=== PATIENT | female | born 1965 | race Caucasian/White ===

== ENCOUNTER 2018-08-23 11:27 | Emergency (ER) | payer OTHER, SELFPAY ==
[2018-08-23 11:28] VITALS: BP 124/86; PULSE 69; RESP 15; TEMP 36.7; O2SAT 98; BMI 44.9
--- NOTE | 2018-08-23 12:03 | ED.VISSUMM ---
- ER Visit Summary Date of Service: 08/23/18 Chief Complaint: Right knee pain History of Present Illness: The patient is a 53 F who presents with right knee pain that began after a fall today. Patient states she fell while she was at work. Patient states her lower leg was hyperextended underneath of her. Patient has a prior history of knee surgery on that knee. Patient states she felt a pop. Patient states her pain is sharp and is worse with weightbearing. Patient denies any paresthesias or weakness. Patient denies any other injuries. Patient denies any head injury or loss. Physical Examination: Vital signs are stable. Patient is afebrile. Patient is in no acute distress. Musculoskeletal exam reveals tenderness over the right knee. There is some mild edema. There is no ecchymosis. There is no deformity noted. There is no effusion noted. Extensor mechanism is intact. There is no pain with manipulation of the patella. Pedal pulses are equal bilateral. Sensation was intact light touch in all dermatomes of the lower extremities. Test Results: X-rays of the right knee were obtained. There is no acute fracture or dislocation. The prosthesis is intact. Emergency Department Course and Treatment: Patient was instructed to ice and elevate the right knee. Patient was instructed to follow-up with [facility] or her primary care physician in 5 to 7 days. Patient was instructed to use Tylenol and Motrin as needed for pain. Patient was given crutches. Patient understood and was agreeable with the plan. All questions were answered. Disposition: Discharge home Impression: Right knee contusion This note was generated with [employer] dictation software. It may contain incorrect words, spelling, and punctuation that were not noted in review of the chart prior to signing ED Disposition - Plan for ED Patient: Disposition: Home or Assisted Living Diagnosis: Contusion of right knee, initial encounter Instructions: ED Contusion Lower Ext Referrals: Judson Tena [Primary Care Provider] - 5-7 Days
--- NOTE | 2018-08-23 12:15 | RAD_ITS ---
STUDY: X-RAY - RIGHT KNEE REASON FOR EXAM: Female, 53 years old. Knee pain TECHNIQUE: 4 view(s) of the knee. Weight-bearing COMPARISON: None. FINDINGS: Status post right knee arthroplasty. No evidence of acute hardware failure or loosening. No fracture or dislocation. Small joint effusion. The soft tissue structures are unremarkable. RAD/Knee 4 or More Views IMPRESSION: As above Electronically Signed: Harvinder Miles DO at 13:20 EDT Tel , Service support ,
[2018-08-23 14:57] VITALS: BP 125/78; PULSE 72; RESP 16; O2SAT 97
== END 2018-08-23 14:58 | disposition home or self-care (01) ==
PROVIDERS: Emergency Provider Emergency Medicine; Family Provider Family Medicine; PCP Family Medicine
DX: S80.01XA Contusion of right knee, initial encounter (principal); W19.XXXA Unspecified fall, initial encounter; Y93.9 Activity, unspecified; Y92.89 Other specified places as the place of occurrence of the external cause; Y99.0 Civilian activity done for income or pay; I10 Essential (primary) hypertension; Z79.899 Other long term (current) drug therapy
CPT/HCPCS: 73564; 99285

== ENCOUNTER 2020-06-25 14:58 | Outpatient (RCR) | payer OTHER, SELFPAY ==
[2018-09-18 09:48] VITALS: BMI 44.8
[2020-06-25] MEDS: COVID-19 VACC, MRNA(PFIZER)/PF 30 MCG/0.3 ML SYRINGE IM (15:37)
[2020-07-16] MEDS: COVID-19 VACC, MRNA(PFIZER)/PF 30 MCG/0.3 ML SYRINGE IM (15:10)
== END 2020-06-25 23:59 ==
LOC: IMMUN 14:58
PROVIDERS: Visit Provider Family Medicine
DX: Z23 Encounter for immunization (principal)
CPT/HCPCS: 0001A; 0002A; 91300

== ENCOUNTER → 2021-01-13 | Outpatient (CLI) | payer OTHER, SELFPAY | END | disposition home or self-care (01) | LOC: LABSPEC 09:06 | PROVIDERS: Referring Provider Physician Assistant; Visit Provider Physician Assistant | DX: U07.1 COVID-19 (principal) | CPT/HCPCS: 87635; U0005; U0003 ==

== ENCOUNTER → 2021-03-21 15:11 | Outpatient (CLI) | payer OTHER, SELFPAY ==
[2021-03-21 16:16] LABS: Absolute Lymphocyte Count 2.74 X10^3/uL (0.83-4.51); Absolute Neutrophil Count 6.5 X10^3/uL (2.0-7.7); Basophil# 0.07 X10^3/uL; Basophil% 0.7 % (0-1); Eosinophil# 0.24 X10^3/uL; Eosinophils% 2.3 % (0-5); Hematocrit 42.2 % (37-47); Hemoglobin 13.7 g/dL (12.0-15.0); Lymphocyte # 2.74 X10^3/ul (0.83-4.51); Lymphocyte % 26.2 % (19-41); Mean Corp Hgb Conc 32.5 g/dL (32-36); Mean Corpuscular Hgb 30.2 pg (27.0-32.0); Mean Platelet Vol. 9.5 fl (6.2-12.0); Monocyte# 0.83 X10^3/uL; Monocyte% 7.9 % (0-10); NRBC Flagged by Analyzer 0 % (0-5); Neutrophil # 6.53 X10^3/uL (2.7-7.7); Neutrophil % 62.4 % (47-70); Platelet Count 335 K/mm3 (150-450); RBC Distribution Width SD 41.1 fl (35.1-43.9); Red Blood Count 4.54 M/mm3 (4.2-5.4); White Blood Count 10.5 K/mm3 (4.4-11.0)
[2021-03-21 16:23] LABS: CRP 9.24 mg/L (0.0-3.0)
[2021-03-21 16:55] LABS: Erythrocyte Sedimentation Rate 37 mm/hr (0-30)
== END ==
PROVIDERS: PCP Family Medicine; Visit Provider Orthopaedic Surgery
DX: Z96.652 Presence of left artificial knee joint (principal)
CPT/HCPCS: 36415; 85025; 85652; 86140

== ENCOUNTER → 2021-09-30 | Outpatient (CLI) | payer OTHER, SELFPAY ==
--- NOTE | 2021-09-30 07:34 | NM_ITS ---
Three-phase bone scan INDICATION: Left knee replacement 10 years ago, left knee pain TECHNIQUE: 25.4 mCi of technetium 99m labeled MDP injected intravenously with 3 phase imaging the bilateral knees. FINDINGS: Blood flow and blood pool imaging demonstrates asymmetric increased activity of the distal left thigh/knee particularly along the medial joint. On delayed imaging, there are photopenic defects of the bilateral knees compatible with knee replacements. There is asymmetric activity on delayed imaging of the left more than right knee, particularly involving the distal femur, medial more than lateral. NM/Bone Scan Three Phase IMPRESSION: Positive three-phase imaging of the medial left knee/distal left femur can be associated with hardware loosening or infection. Recommend correlating with the x-ray and nuclear medicine WBC labeled study, if appropriate. Electronically Signed: Miquel Damico MD ([place]) at 16:40 EDT ,
[2021-09-30 08:21] LABS: Erythrocyte Sedimentation Rate 24 mm/hr (0-30)
[2021-09-30 08:22] LABS: Absolute Neutrophil Count 4.3 X10^3/uL (2.0-7.7); Basophil# 0.05 X10^3/uL; Basophil% 0.7 % (0-1); Eosinophil# 0.43 X10^3/uL; Eosinophils% 5.8 % (0-5); Hematocrit 39.9 % (37-47); Lymphocyte % 25.5 % (19-41); Mean Corp Hgb Conc 32.6 g/dL (32-36); Mean Corpuscular Hgb 30.2 pg (27.0-32.0); Mean Corpuscular Volume 92.8 fL (81-99); Mean Platelet Vol. 9.4 fl (6.2-12.0); Monocyte# 0.77 X10^3/uL; Monocyte% 10.3 % (0-10); NRBC Flagged by Analyzer 0 % (0-5); Neutrophil # 4.27 X10^3/uL (2.7-7.7); Neutrophil % 57.3 % (47-70); Platelet Count 284 K/mm3 (150-450); RBC Distribution Width CV 12.1 % (11.6-14.6); White Blood Count 7.5 K/mm3 (4.4-11.0)
== END | disposition home or self-care (01) ==
PROVIDERS: PCP Family Medicine; Referring Provider Orthopaedic Surgery; Visit Provider Orthopaedic Surgery
DX: Z96.652 Presence of left artificial knee joint (principal); Z47.1 Aftercare following joint replacement surgery
CPT/HCPCS: 36415; 78315; 85025; 85652; 86140; A9503

== ENCOUNTER → 2021-11-10 | Outpatient (CLI) | payer OTHER, SELFPAY ==
[2021-11-10 10:15] LABS: Synovial Fld Mononuclear WBC # 0.655 10^3/ul; Synovial Fld Mononuclear WBC % 76.1 %; Synovial Fld Polynuclear WBC # 0.206 10^3/uL; Synovial Fld Polynuclear WBC % 23.9 %
[2021-11-10 10:17] LABS: RBC /Synovial Fluid 0.018 10^6/uL (0)
[2021-11-10 11:22] LABS: AUTO B FLUID DILUENT BKGD CT WBC <0.1 RBC <0.01 (W<.1,R<.01)
[2021-11-10 11:23] LABS: Appearance /Synovial Fluid Hazy (CLEAR); Color / Synovial Fluid Yellow (Pale Yellow); Source / Synovial Fluid LEFT KNEE
[2021-11-10 11:25] LABS: Lymph 41 %; Monocyte /Synovial Fluid 25 %; Neutrophil 34 % (0-25)
[2021-11-10 11:27] LABS: Body Fluid QC Type(s) BF2
[2021-11-11 13:13] LABS: Pathologist Comment Reviewed
== END | disposition home or self-care (01) ==
LOC: LABSPEC 09:34
PROVIDERS: PCP Family Medicine; Referring Provider Specialist; Visit Provider Specialist
DX: M25.562 Pain in left knee (principal); Z96.652 Presence of left artificial knee joint
CPT/HCPCS: 87015; 87070; 87075; 87102; 87116; 87205; 87206; 89050; 89051

== ENCOUNTER 2022-10-24 10:07 | Outpatient (RCR) | payer OTHER, SELFPAY | END 2022-11-06 23:59 | LOC: NS 10:07 | PROVIDERS: PCP Family Medicine; Referring Provider Specialist; Visit Provider Specialist | DX: Z71.3 Dietary counseling and surveillance (principal); E66.01 Morbid (severe) obesity due to excess calories; Z68.42 Body mass index [BMI] 45.0-49.9, adult | CPT/HCPCS: 97802 ==

== ENCOUNTER 2022-11-08 10:45 | Outpatient (RCR) | payer OTHER, SELFPAY | END 2022-12-07 23:59 | LOC: NS 10:45 | PROVIDERS: PCP Family Medicine; Referring Provider Specialist; Visit Provider Specialist | DX: Z71.3 Dietary counseling and surveillance (principal); E66.01 Morbid (severe) obesity due to excess calories; Z68.42 Body mass index [BMI] 45.0-49.9, adult | CPT/HCPCS: 97803 ==

== ENCOUNTER 2022-12-05 11:30 | Outpatient (RCR) | payer OTHER, SELFPAY ==
--- NOTE | 2022-10-19 17:12 | HP.PTEVAL ---
Patient's Visit Information Visit Information Visit Information: REEMA ORELLANA is a 57 year old F referred to Physical Therapy by Dr. Valentino Puente MD with a diagnosis of L knee mech loosening posthetic joint, knee pain, obesity. Date of Evaluation: 10/19/22 Physical Therapist: Stewart Guevara, DPT, OCS, CSCS Visit Plan Frequency: 2x /Week Duration: 4-6 Weeks Plan: 2x/week x 4-6. 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 Pt to add ROM flexion to HEP and abd/add at [employer] Subjective Subjective: Have knee surgery coming up. Will have TKA on L knee, revision from 12 yrs ago. prosthesis loosened over time and causes her pain and limping. She can feel it grinding on steps. Pain up to 8/10 and average 5/10. 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 Worse after work. Sleep is OK. Basic ADLs able to do them. Hobbies: Avoids hiking due to knee pain. Exericses: [employer] or [employer]. does a little bit of everything 3-4x/week, avoids some leg machines including leg ext...can do press and leg curls and RDL. 02/14 will be surgery. Pain L knee: Pain Intensity (Out of 10): 0 Pain Intensity Range: 0 and 8 Objective Objective: L knee antalgia mildly coming into PT. No AD needed. I gait. I trasnfers from chair and bed. steps recirpocally up and down but pain L knee in WB descension. requires railing up and down and mildly weak on L. AROM L knee 0-110 and R knee 0-113, 0 ext lag with SLR B. quad moderatly tight B, HS min tightness. Hip AROM WFL, ankles WFL except DF to 0 B with tightness in gastroc. strength hips 3+ abd and ext, 4- flexion, no pain B. knee ext 4- L and pain, 4+ R, HSC 4 B ankle strength 4+ B. reflexes 2/3 B patella and achilles Sensation LE WNL to gross light touchin LE Balance/Special Test Scores Lower Extremity Functional Score: 38 Goals Goal 1:: 0-115 AROM L knee to help on steps comfort. Goal Time Frame: 4-6 Weeks Goal 2:: Patient I in appropriate pool ex for stretch quad, ROM and strength lower half/calorie burning Goal Time Frame: 4-6 Weeks Goal 3:: Pt feel 50% better in overall pain, to 2/10 at worst. Rehabilitation Potential Physical Therapy Diagnosis: L knee tightness, ROM deficits and weakness. Rehabilitation Potential: Good Anticipated Interventions Patient/Client Instruction: Educate patient on: Condition and Plan of Care For the Purpose of:: To decrease pain, To increase ROM, To improve muscle performance and motor function, To increase tolerance to activity/condition/position, To improve ability of physical actions for home/community/work/leisure and To improve gait and locomotor functions Therapeutic Exercise to Include: Strength training, Endurance training, Flexibilty training, In an aquatic setting, Passive ROM and Active ROM For the Purpose of:: To decrease pain, To increase ROM, To improve nutrient delivery to tissue, To improve muscle performance and motor function and To increase tolerance to activity/condition/position Text: Thank you for the opportunity to evaluate your patient. For Medicare and Medicare HMO plans, please review the plan of care and approve it. It will need to be FAXED BACK to us at [phone] for Medicare purposes. For Medicare only, by signing this I certify the plan of care. Please let me know if there are questions or concerns regarding this plan of care. Physician Signature: Date:
--- NOTE | 2022-11-16 10:59 | HP.PTREVAL_ITS ---
Re-Evaluation Intro: Dr. Valentino Puente MD, It has been my pleasure to treat REEMA ORELLANA over the last 9 visits for L knee mech loosening posthetic joint, knee pain, obesity. Please see the progress note below for an update on the physical therapy plan of care! Subjective Subjective: Pool is going well. I am getting stronger. Pain is not changing, will have revision on 8. pain in L knee and r hip 2/10 daily. Sometimes it feels like it will not hold her up. Activities: normal. Sleep is OK for the most part. Objective Objective/Function: 0-115 AROM, steps look better today but still click descend ing with L. No pain today but still slightly weak L eccentric steps vs R and requires rail. Appropriate to continue 3 more weeeks pool to [facility] and work to I, will continue [employer] workout during that time. Plan Plan Plan: 2x/week for 3 more weeks then d/c to community pool/[employer]. Progress WB pool ex and calorie burning and ensure ROM stays good. goals still appropriate and good prognosis. Balance/Gait/Functional tests Balance/Special Test Scores Lower Extremity Functional Score: 48 Goals Goals Goal 1:: 0-115 AROM L knee to help on steps comfort. Goal Time Frame: 4-6 Weeks Goal Progress: Goal Met Goal 2:: Patient I in appropriate pool ex for stretch quad, ROM and strength l ower half/calorie burning Goal Time Frame: 4-6 Weeks Goal Progress: Progressing Goal 3:: Pt feel 50% better in overall pain, to 2/10 at worst. Goal Progress: Progressing Anticipated Interventions Anticipated Interventions Patient/Client Instruction: Educate patient on: Condition and Plan of Care For the Purpose of:: To decrease pain, To increase ROM, To improve muscle performance and motor function, To increase tolerance to activity/condition/position, To improve ability of physical actions for home/community/work/leisure and To improve gait and locomotor functions Therapeutic Exercise to Include: Strength training, Endurance training, Flexibilty training, In an aquatic setting, Passive ROM and Active ROM For the Purpose of:: To decrease pain, To increase ROM, To improve nutrient delivery to tissue, To improve muscle performance and motor function and To increase tolerance to activity/condition/position Re-Evaluation Ending Re-evaluation ending: Please do not hesitate to contact me at [phone] by phone or if you have questions or concerns regarding this new plan of care! Sincerely, Stewart Guevara, DPT, OCS, CSCS
--- NOTE | 2023-01-16 18:06 | HP.PT.NRP ---
Patient Information Patient Information: REEMA ORELLANA was seen in my office for initial evaluation on 10/19/22. The following Plan of Care was established for this patient: POC Established Initial Frequency: 2x /Week Initial Duration: 4-6 Weeks Anticipated Interventions Patient/Client Instruction: Educate patient on: Condition and Plan of Care For the Purpose of:: To decrease pain, To increase ROM, To improve muscle performance and motor function, To increase tolerance to activity/condition/position, To improve ability of physical actions for home/community/work/leisure and To improve gait and locomotor functions Therapeutic Exercise to Include: Strength training, Endurance training, Flexibilty training, In an aquatic setting, Passive ROM and Active ROM For the Purpose of:: To decrease pain, To increase ROM, To improve nutrient delivery to tissue, To improve muscle performance and motor function and To increase tolerance to activity/condition/position Last Seen Last Seen: This patient was last seen in our office 12/05/22. Pertinent comments regarding their Physical therapy will appear below: Pt seen 14 visits of pool plan of care and was 95% better overall and had become I in HEP, at this point, I will discharge her per the last POC to an I program. At this point I will be discontinuing this patient from physical therapy. I would be happy to see this patient again in the future if found appropriate by the physician. Thank you! Stewart Guevara, DPT, OCS, CSCS Balance/Gait/Functional tests Balance/Special Test Scores Lower Extremity Functional Score: 48
== END 2022-12-05 19:00 | disposition home or self-care (01) ==
LOC: PT 11:30
PROVIDERS: PCP Family Medicine; Referring Provider Specialist; Visit Provider Specialist
DX: T84.033D Mechanical loosening of internal left knee prosthetic joint, subsequent encounter (principal); M25.562 Pain in left knee
CPT/HCPCS: 97113; 97161; 97530

== ENCOUNTER 2023-02-14 10:56 | Inpatient (IN) | payer OTHER, SELFPAY ==
--- NOTE | 2023-01-22 11:00 | EKG12_ITS ---
Test Reason : PRE OP Blood Pressure : / mmHG Vent. Rate : 074 BPM Atrial Rate : 074 BPM P-R Int : 130 ms QRS Dur : 078 ms QT Int : 390 ms P-R-T Axes : 054 035 055 degrees QTc Int : 432 ms Normal sinus rhythm with sinus arrhythmia Normal ECG Confirmed by KENN CARR, PETER ([id number]), scientific publications editor ZACH SALDIVAR ([id number]) on 01/25/2023 11:36:55 AM Referred By: SID Confirmed By:PETER HAWK MD
[2023-01-22 11:30] LABS: Absolute Lymphocyte Count 1.75 X10^3/uL (0.83-4.51); Absolute Neutrophil Count 4.7 X10^3/uL (2.0-7.7); Basophil# 0.03 X10^3/uL; Basophil% 0.4 % (0-1); Eosinophil# 0.22 X10^3/uL; Eosinophils% 2.9 % (0-5); Hematocrit 42.1 % (37-47); Hemoglobin 13.7 g/dL (12.0-15.0); Lymphocyte # 1.75 X10^3/ul (0.83-4.51); Lymphocyte % 23.1 % (19-41); Mean Corp Hgb Conc 32.5 g/dL (32-36); Mean Corpuscular Hgb 31.1 pg (27.0-32.0); Mean Corpuscular Volume 95.5 fL (81-99); Mean Platelet Vol. 9.2 fl (6.2-12.0); Monocyte# 0.83 X10^3/uL; Monocyte% 10.9 % (0-10); NRBC Flagged by Analyzer 0 % (0-5); Neutrophil # 4.74 X10^3/uL (2.7-7.7); Neutrophil % 62.4 % (47-70); Platelet Count 289 K/mm3 (150-450); RBC Distribution Width CV 12.1 % (11.6-14.6); RBC Distribution Width SD 42.5 fl (35.1-43.9); Red Blood Count 4.41 M/mm3 (4.2-5.4); White Blood Count 7.6 K/mm3 (4.4-11.0)
[2023-01-22 11:57] LABS: Albumin, Serum 3.4 g/dL (3.2-5.0); Anion Gap 6 (5-15); BUN 20 mg/dL (7-18); BUN/Creat Ratio 36.8 RATIO (10-20); Calcium,Total 8.7 mg/dL (8.5-10.1); Chloride 109 mmol/L (98-107); Creatinine, Serum 0.54 mg/dL (0.55-1.02); EST Glomerular Filtration Rate 122 mL/min (>60); Est Glom Filt Rate - Afr Amer 148 mL/min (>60); Glucose 82 mg/dL (74-106); Potassium 4.2 mmol/L (3.5-5.1); Sodium Level 140 mmol/L (136-145)
--- NOTE | 2023-02-05 13:22 | HP.PCM_ITS ---
History and Physical History and Physical? Patient Name: Gissel Yeager : 1965 From:? FARIHA MARCUS PA-C? DATE OF PRE-OPERATIVE EXAM: 02/05/2023 DATE OF SURGERY:? 02/14/2023 SCHEDULED PROCEDURE:? Revision left total knee arthroplasty HISTORY OF PRESENT ILLNESS: Preoperative history and physical exam was performed on February 05, 2023.? This is a 57-year-old female who is had ongoing pain in her postoperative left total knee arthroplasty.? Patient underwent previous left total knee arthroplasty by Dr. Roman Sanford on May 06, 2011.? She also underwent a right total knee arthroplasty on May 06, 2012.? She denies any postoperative complications.? Patient has had increased pain.? Pain is increased with going up and down stairs, sitting and walking.? She has difficulty with activities of daily living including leisure activities such as hiking.? She has been through weight loss program in which she is lost weight since her last visit.? Her BMI has gone down from 46.9-45.5.? She continues to have pain in the knee primarily over the medial and lateral joint line.? She has had past x-rays and bone scan which are consistent with loosening.? She had infectious workup with aspiration which was negative.? Synovasure was negative.? She did have elevated CRP at 10.5 with normal ESR at 24.? Patient has tried rest, ice, heat, elevation with no relief.? She has tried previous physical therapy and home exercises without relief.? She has been using [id number] Tylenol with only temporary relief.? After failing conservative measures and discussing all treatment options with Dr. Valentino Puente, the patient does wish to proceed with a left revision total knee arthroplasty.? We are obtaining surgical clearance from the primary care physician Dr. Calero.? She has medical history pertinent for gastroesophageal reflux disease and hypertension in which she does not require medication.? She denies past history of DVT or pulmonary embolism.? Denies any recent chest pain, shortness breath, fevers chills.? However she is having some congestion which is improving.? Patient does have past history of gastric sleeve procedure in 2019.? REVIEW OF SYSTEMS: Review Of Systems: Constitutional: Denies anorexia, change in appetite, fever, difficulty sleeping, weight change. Cardiovasular: Denies chest pain, heart murmur, irregular heartbeat and peripheral vascular disease. Respiratory: Denies asthma, cough, pneumonia, sleep apnea, shortness of breath, tuberculosis and wheezing. Gastrointestinal: Denies constipation, diarrhea, heartburn, nausea, rectal itching, bloody stools and vomiting. Genitourinary: Denies incontinence. Musculoskeletal: Reports pain, but denies leg swelling, trouble walking and weakness. Skin: Reports tattoo, but denies Raynaud's and history of shingles. Neurological: Denies ambulatory dysfunction, dizziness, numbness/tingling and tremor. Psychiatric: Denies anxiety, depression, insomnia, mental illness and stress. Hematologic/Lymphatic: Denies anemia, bleeding/bruising tendency and past transfusion. Reviewed and updated. PAST MEDICAL HISTORY: Advance Care Plan: No Advance Directives Effective Date: 03/15/2021 Past Medical History: Medical Problems: High Blood Pressure, Gastroesophageal Reflux Disease Accidents: None Surgical Hx: Bunion - 1999 Section - 1983 LT TKR - (05/08/2011) [email or web address] RT TKR - (05/06/2012) [facility] @ [facility] Gastric Sleeve - (2019) Anesthesia Complications: None Assistive Devices: Glasses Reviewed and updated. SOCIAL HISTORY: Social History: Marital: .Occupation: Penitentiary.Work Status: Currently Working.Hand Dominance: Right-handed. Personal Habits:? Cigarette Use: Former - .5 pack/day for 3 years.Smokeless Tobacco: Never Used Smokeless Tobacco.E-Cigarette Use: Never used.Alcohol: Occasionally.Drug Use: Denies Use.Enjoy Exercising: Exercises 1-3 X/Week. Reviewed, no changes. VITALS: Ht: 63 Wt: 257lb Wt k.575 BMI: 45.5 BP: 118/80 Pulse: 81 Resp: 15 T: 97.4 T: 36.3C Pain Level: 6 O2SatR: 97 ALLERGIES: Amoxicillin - rash/hives? MEDICATIONS: Pantoprazole Sodium 40 mg 1 by mouth every day, Zyrtec Allergy 10 mg 1 by mouth every day, Biotin 1000 mcg one tab po once daily, Multivitamin? 1 by mouth every day, Vitamin D3 Ultra Strength 125 mcg (5000 Ut) one cap po once daily, Stool Softener 100 mg two caps po once daily prn, Vitamin C 1000 mg one tab po once daily PRE-OP EXAM:? General appearance:NORMAL? ? ? Other: Eyes: Conjunctivae and lids: NORMAL? Pupils: ERR Ears, Nose, Mouth, and Throat: NORMAL? Other: Inspection of lips, teeth and gums: NORMAL? ?Other: Neck: Examination of neck: no masses noted. Respiratory: Assessment of respiratory effort: NORMAL? ?Other: ?Auscultation of lungs: clear to auscultation no wheezes, rhonchi or rales. Cardiovascular:? Auscultation of heart: regular rate and rhythm, no murmurs, gallops or rubs. PHYSICAL EXAMINATION: Patient does walk with an antalgic gait.? Left knee incision is well-healed without erythema.? She has tenderness to palpation along the medial joint line of the left knee.? Range of motion: 0 extension 114 flexion.? Stable to anterior/posterior drawer exam.? Sensation intact to light touch. IMAGING STUDIES: Previous x-rays and bone scan are consistent with loosening with the tibial cement mantle.? There is also lucency behind the anterior flange on the femur on the lateral view. Previous ESR 24 and CRP elevated at 10.5 Negative infection workup IMPRESSION: 1.? Painful left total knee arthroplasty with loosening 2.? Gastroesophageal reflux disease 3.? History of Hypertension 4.? Morbid obesity BMI 45.5 PLAN: Dr. Valentino Puente did discuss and review with the patient all treatment options including surgical versus nonsurgical options.? Patient does wish to proceed with the above-stated procedure.? Potential risks, benefits, and complications of the procedure were discussed in detail including but not limited to , infection, nerve and blood vessel damage, persistent pain, numbness, tingling, paresthesias, blood clot, pulmonary embolism, and requirement for possible further surgery.? The patient expressed full understanding and has no further questions for the doctor.? Patient does agree to proceed with the above-stated procedure and has signed the surgery consent form. POST-OP MEDICATION PLAN: Pain Medications: Patient will resume postoperatively with are normal pain regimen.? However we will avoid nonsteroidal anti-inflammatory due to elevated kidney function.? We discussed postoperative treatment with doxycycline for 2 weeks postoperatively.? We'll also follow cultures postoperatively while in the hospital which may alter antibiotics. DVT Prophylaxis:? Aspirin 81 mg twice daily for 4 weeks postoperatively.? Denies past history of DVT or pulmonary embolism This dictation was created using voice recognition software. Phonetic and/or grammatical errors may exist. ___? I have re-examined the patient.? There are no clinical changes since date of exam. ___? See progress notes for changes. ___? Dictated on admission Date: ? ? ?Time: Signature:
[2023-02-14] VITALS (11 sets, daily range): BP systolic 107–143; BP diastolic 67–90; PULSE 63–79; RESP 11–18; TEMP 36.5–36.9; O2SAT 93–100; BMI 45.6
[2023-02-14] MEDS: Acetaminophen 500 MG Tablet 1000 MG PO ×2 (11:45→20:49)
[2023-02-14] MEDS: Gabapentin 600 MG Tablet PO (11:46)
[2023-02-14] MEDS: Celecoxib 200 MG Capsule 400 MG PO (11:46)
[2023-02-14] MEDS: Lactated Ringers 1,000 ML 15 ML IV (11:47)
[2023-02-14 11:49] LABS: Bedside Glucose 92 mg/dL (74-106)
[2023-02-14] MEDS: Magnesium 1 GM over 15 mins IV (11:55)
[2023-02-14] MEDS: Lactated Ringers 1,000 ML 999 ML IV ×2 (12:04→16:45)
[2023-02-14] MEDS: Cefazolin 2 GM in 0.9% Normal Saline (100mL Bag) 100 ML IV (13:36)
[2023-02-14] MEDS: TXA 1000mg in NS100 100ml (IVPB at Incision) 660 MG IV (13:46)
[2023-02-14] MEDS: dexAMETHasone 10 MG/ML Vial IV (13:58)
[2023-02-14] MEDS: TXA 1000mg in NS100 100ml (IVPB at Closure) 660 MG IV (15:36)
[2023-02-14] MEDS: JPS (Morphine 10mg/ml) OPERA.SITE (15:39)
--- NOTE | 2023-02-14 15:44 | PCM.OPRPT ---
Report of Operation Date of Procedure: 02/14/23 Pre-Operative Diagnosis: Left failed total knee replacement, aseptic loosening Post-Operative Diagnosis: Left failed total knee replacement, aseptic loosening Surgery/Procedure Performed:: Left revision total knee replacement entire femoral and tibial components Description of Surgical Findings:: Stable knee with good patella tracking. Femoral and tibial implants were grossly loose. Surgeon: Valentino Puente appraiser land: Avni Chamorro Type of Anesthesia: Spinal Anesthesiologist: John Farnsworth Special Medications: 2 g Ancef, 1 g TXA at incision, 1 g TXA closure, 10 mg Decadron, joint cocktail (5 mg Duramorph, 30 mL of 0.5% Ropivicaine, 1000 units of epinephrine, 30 mg of Toradol) Specimen's removed: 3 separate specimens were sent to microbiology Estimated Blood Loss (mL): 200 Fluids Replaced: 1000 mL crystalloid Description of Procedure: Implants used: Femur: Cheryl triathlon size 5 total stabilized distal femur with 15 x 50 mm cemented stem. 5 mm augments distally medially and laterally. 5 mm augments posteriorly medially and laterally. Tibia: [place] triathlon size 5 universal tibial baseplate with 15 x 50 mm cemented stem, size C tibial cone Poly: 16mm total stabilized [place] X3 polyethylene Patella: Previous patella was retained Brief history operative indications: 57-year-old F with total knee replacement 13 years ago. Patient demonstrated radiographic evidence of loosening and clinical correlation. After ruling out infection we agreed to proceed with revision total knee replacement which had risks which include but not limited to blood loss, DVTs, PEs, nervous damage, infection, the risk of anesthesia. Patient demonstrate understanding was able to sign informed consent. Medical clearance was obtained. Procedure: On the date of procedure patient's L lower extremity was marked in the preoperative area. The patient was then taken back to the operating room where the patient was placed on the table in the supine position. All bony prominences were identified a well-padded. Anesthesia assumed control of the C-spine and airway and remained controlled throughout the remainder of the procedure. A tourniquet was placed on the L upper thigh and the leg was prepped in a sterile fashion. The surgeon then scrubbed at this time. Upon reentering the room L lower extremity was draped in a standard orthopedic fashion. A timeout was then called and everyone agreed upon the side, the site, the procedure to be performed, patient's identity and antibiotics given. An Esmarch bandage was used to exsanguinate the extremity and the tourniquet was placed up to 250 mmHg with the knee in flexion. A midline skin incision was made using the previous incision and extending it proximally and distally to identify normal tissue planes. Medial and lateral flaps were developed appropriate releases. The standard medial parapatellar arthrotomy was made and the patella was subluxed laterally. At this time an aggressive synovectomy was performed re-creating the medial gutter first, then the suprapatellar pouch than the lateral gutter. Once this was completed the knee was flexed up an osteotome was used to remove the tibial polyethylene. The remainder of the synovium was debrided. The standard deep MCL release was done and the patella scar pad was resected and lateral releases were performed. Next our attention was directed to the femur. Where flexible osteotomes and TPS saw were used to break up the implant cement interface. This was done both medially and laterally. After this a bone tamp was used to remove the femur component from the end of the bone. This was done with minimal bone loss. At this time attention was now directed towards the proximal tibia. Possible osteotome and TPS saw were then used to break up the proximal tibia implant interface and stacked osteotomes were used to remove the tibial implant. This was done with minimal bone loss. Our attention was then turned to the tibia where the intramedullary canal was reamed to 18 and a size C tibial cone was reamed. We then made a cleanup cut on the tibia, A drop ag was then used to verify the cut. A size 5 tibial base plate was selected. the knee was flexed and the tibial component was pinned into place and the boss reamer was used to ream the proximal medullary canal. The trial implant was impacted in its prepared position. Our attention was then turned back to the femur or the femur intramedullary canal was reamed to 17 mm using the previous implants a size 5 TCG cutting guide with a 17 mm stem was put into place. The medial epicondyle was used to set the joint line. With this TCG cutting guide we used a 16 mm polyethylene trial in order to help balance the gaps. Once the gaps were appropriately balanced the guide was firmly pinned into place. Distal cuts were made with 5 mm augments medially and 5 mm augment laterally. Posterior cuts were made with 5 mm augments medially and 5 mm augment laterally. Using the guide the box cut was made using a reciprocating saw. The appropriate trials were then placed on the femur and tibia. A trial polyethylene was trialed to ensure proper balancing and stability of the knee. Patella tracking, was then verified and corrected appropriately as needed. Our attention was then directed to the patella. Patella remained intact and appropriate. Based on x-rays it was firmly fixed. Patellar tracking was again checked and deemed appropriate. Final components were verified and opened, 6 liters of normal saline were irrigated throughout the joint under low-pressure lavage. Then the cement was mixed in a vacuum. Vigour.io Simplex cement with tobramycin was used. The wound was copiously irrigated with normal saline. When the cement was ready cement plugs were placed in the tibial cone was placed the components were cemented into place starting with the tibia, femur. The trial poly component was placed and the knee was placed in full extension. All excess cement was removed in the process. Once the cement had cured the tracking, alignment and balance were verified and a size 16 mm TS polyethylene component was placed. Once the final components were placed 3-minute dilute Betadine lavage followed by a chlorhexidine lavage was used and the wound was copiously irrigated with normal saline solution and the remainder of the periarticular injection was given. The wound was closed in a layer garcia fashion using #1 vicryl interrupted sutures for the arthrotomy, 2-0 interrupted Vicryl for the subcuticular layer and noemi for final skin closure. A sterile compressive dressing was then placed. The patient was then awakened from anesthesia, [facility] and [facility] to the [facility] for recovery. Post op plan DVT ppx: ASA 81mg BID, thigh high compression stockings Follow up: in office in 2 weeks for wound check PT: to start POD #0 at hospital, outpatient PT should be arranged. Patient will remain on doxycycline 100 mg p.o. twice daily for the next 2 weeks as we follow cultures. My physician behavioral health assistant was a vital part of this case. He was important in appropriate retraction during the case, and protection of soft tissues during bony cuts. His intimate knowledge of the case and my steps aided in safe and expedient completion of the procedure as well as appropriate position of the leg during the case. He was also vital in assisting with closure under my direct supervision. Complications No intraoperative complications Admit VTE Documentation VTE Present on Admission: No VTE Mechan Device Prophylaxis: SCD's and Thigh High MARTHA Hose VTE Pharm Prophylaxis ordered?: Yes
--- NOTE | 2023-02-14 16:45 | RAD_ITS ---
INDICATION: post op -- AP and Lateral xray of operative knee in PACU EXAMINATION/TECHNIQUE: X-RAY - LEFT XR Knee 2 VIEWS COMPARISON: FINDINGS: Status post left total knee replacement. The hardware components are well aligned. Postoperative changes in the adjacent soft tissue. . RAD/Knee 1 or 2 Views IMPRESSION: Total left knee replacement with postsurgical changes. Electronically Signed: Lazaro Grajeda DO at 17:50 EST ,
--- NOTE | 2023-02-14 17:54 | PCM.PN.HOSP ---
Subjective Subjective 57-year-old female presents for an elective left total knee revision secondary to aseptic loosening. Doing well in PACU on room air currently. Objective Data Objective Data Vital Signs: Vital Signs Temp Pulse Resp BP Pulse Ox O2 Del Method O2 Flow Rate 97.9 F 79 12 137/88 H 93 Room Air 4 02/14/23 17:30 02/14/23 17:30 02/14/23 17:30 02/14/23 17:30 02/14/23 17:30 02/14/23 17:30 02/14/23 17:15 Oxygen Flow Rate (L/min) 4 Oxygen Delivery Method Room Air Weight: 257 lb 15.053 oz Body Mass Index (BMI) 45.6 Intake & Output: Intake and Output for Last 24 Hours 02/13/23 02/14/23 02/15/23 03:59 03:59 03:59 Intake Total 1330 / 1330 Balance 1330 / 1330 Lab / Micro Data 01/22/23 11:09 01/22/23 11:09 Labs: Laboratory Results - last 24 hr 02/14/23 11:30: POC Glucose 92 Micro: Microbiology 01/22/23 11:09 Swab (Method) Nasal Screen MRSA/MSSA - Final Radiography Diagnostic Testing: Radiology Impression Knee X-Ray 02/14/23 16:45 IMPRESSION: Total left knee replacement with postsurgical changes. Electronically Signed: Lazaro Grajeda DO at 17:50 EST Reading Location ID and State: [facility] / [place] Tel [phone], Service support , Physical Exam Narrative General: Alert, Oriented x3, Cooperative, No apparent distress HEENT: Atraumatic, PERRLA, EOMI, Normocephalic Oral: Moist Mucosa Neck: Supple, No JVD Lungs: Diminished, Normal air movement, No rhonchi, No wheeze, No rales Cardiovascular: Regular rate, Regular Rhythm, Normal S1, Normal S2, No murmurs Abdomen: Soft, Non Tender, Non-Distended, No Hepato-splenomegaly Extremities: No edema, Capillary Refill Less than 3 Seconds Skin: Dressing CDI Musculoskeletal: No Tenderness to Palpation of Joints or Extremities Neurological: Cranial nerves II-XII grossly intact, Motor Exam 5/5 strength throughout, Sensory exam intact to light touch and pain Psych/Mental Status: Normal Affect, Appropriate Assessment & Plan Assessment/Plan (1) Status post revision of total replacement of left knee: PLAN: Plan 1. Status post left total knee revision on 02/14/2023 ? PT/OT ? Pain management per primary ? DVT prophylaxis per primary ? Currently on p.o. doxycycline ? Check CBC and BMP in the morning 2. GERD ? Stable ? Continue with her home PPI DVT: Per primary We will sign off if any issues arise please notify Charges/Coding Visit Charges Office Visits / Consults: [id number] OV L3 New
[2023-02-14] MEDS: Aspirin 81 MG TAB.CHEW PO (18:15)
[2023-02-14] MEDS: Senna/Docusate Sodium 1 Tablet 2 TABLET PO (20:49)
[2023-02-14] MEDS: Doxycycline 100 MG CAPSULE PO (20:49)
[2023-02-14] MEDS: Cefazolin 1 GM/50 ML BAG IV (20:49)
[2023-02-15 04:05] VITALS: BP 139/83; PULSE 68; RESP 18; TEMP 36.6; O2SAT 98
[2023-02-15] MEDS: oxyCODONE 5 MG Tablet PO ×3 (04:34→21:55)
[2023-02-15] MEDS: Acetaminophen 500 MG Tablet 1000 MG PO ×3 (04:34→21:55)
[2023-02-15] MEDS: Cefazolin 1 GM/50 ML BAG IV (04:35)
[2023-02-15 07:56] LABS: Hematocrit 36.5 % (37-47); Hemoglobin 11.5 g/dL (12.0-15.0); Mean Corp Hgb Conc 31.5 g/dL (32-36); Mean Corpuscular Hgb 30.2 pg (27.0-32.0); Mean Corpuscular Volume 95.8 fL (81-99); Mean Platelet Vol. 9.3 fl (6.2-12.0); Platelet Count 291 K/mm3 (150-450); RBC Distribution Width CV 12.1 % (11.6-14.6); RBC Distribution Width SD 42.1 fl (35.1-43.9); Red Blood Count 3.81 M/mm3 (4.2-5.4)
[2023-02-15 08:27] LABS: Anion Gap 3 (5-15); BUN 14 mg/dL (7-18); BUN/Creat Ratio 25.3 RATIO (10-20); Calcium,Total 8.3 mg/dL (8.5-10.1); Chloride 108 mmol/L (98-107); Creatinine, Serum 0.55 mg/dL (0.55-1.02); EST Glomerular Filtration Rate 120 mL/min (>60); Est Glom Filt Rate - Afr Amer 145 mL/min (>60); Estimated Creatinine Clearance 92.23 ml/min; Glucose 100 mg/dL (74-106); Sodium Level 140 mmol/L (136-145)
[2023-02-15 08:54] VITALS: BP 115/61; PULSE 85; RESP 16; TEMP 37.1; O2SAT 94
--- NOTE | 2023-02-15 09:26 | PCM.PN.ORT ---
Subjective Subjective The patient was sitting in bedside chair upon examination. Patient denies any chest pain, shortness of breath, dizziness, lightheadedness, nausea or vomiting, or calf pain. Pain is controlled on medications. No adverse overnight events. Patient has had drainage over the distal one third of the Mepilex dressing. She has tolerated therapy. We are awaiting on cultures/Gram stain as they are currently pending. Objective Data Objective Data Vital Signs: Vital Signs Temp Pulse Resp BP Pulse Ox O2 Del Method O2 Flow Rate 98.8 F 85 16 115/61 94 Room Air 4 02/15/23 08:54 02/15/23 08:54 02/15/23 08:54 02/15/23 08:54 02/15/23 08:54 02/15/23 08:55 02/14/23 17:15 Oxygen Flow Rate (L/min) 4 Oxygen Delivery Method Room Air Weight: 117 kg Body Mass Index (BMI) 45.6 Intake & Output: Intake and Output for Last 24 Hours 02/13/23 02/14/23 02/15/23 23:59 23:59 23:59 Intake Total 3482 / 3482 50 / 50 Output Total 800 / 800 700 / 700 Balance 2682 / 2682 -650 / -650 Lab / Micro Data 02/15/23 06:55 02/15/23 06:55 Labs: Laboratory Results - last 24 hr 02/14/23 11:30: POC Glucose 92 02/14/23 14:18: Acid Fast Stain Cancelled, Miscellaneous Cytology Cancelled 02/14/23 14:20: Acid Fast Stain Cancelled, Miscellaneous Cytology Cancelled 02/14/23 14:22: Acid Fast Stain Cancelled, Miscellaneous Cytology Cancelled 02/15/23 06:55: WBC 12.0 H, RBC 3.81 L, Hgb 11.5 L, Hct 36.5 L, MCV 95.8, MCH 30.2, MCHC 31.5 L, RDW Std Deviation 42.1, RDW Coeff of Farideh 12.1, Plt Count 291, MPV 9.3, Sodium 140, Potassium 4.0, Chloride 108 H, Carbon Dioxide 29.0, Anion Gap 3 L, BUN 14, Creatinine 0.55, Estim Creat Clear Calc 92.23, Est GFR (MDRD) Af Amer 145, Est GFR (MDRD) Non-Af 120, BUN/Creatinine Ratio 25.3 H, Glucose 100, Calcium 8.3 L Micro: Microbiology 01/22/23 11:09 Swab (Method) Nasal Screen MRSA/MSSA - Final Radiography Diagnostic Testing: Radiology Impression Knee X-Ray 02/14/23 16:45 IMPRESSION: Total left knee replacement with postsurgical changes. Electronically Signed: Lazaro Grajeda DO at 17:50 EST Reading Location ID and State: [facility] / [place] Tel [phone], Service support , Physical Exam Narrative Vital signs stable and afebrile. SCDs and MARTHA hose are in place. MARTHA hose are not fitting appropriately secondary to body habitus. They are rolling up and resting over the knee joint. Concern for skin irritation with this. Knee-high MARTHA hose are not appropriate as they will sit over the incision. She is instructed to continue to try to elevate this as she is more likely to have swelling in the left lower extremity. She voiced understanding and agreement. Instructed the nurse for removal of the MARTHA hose. Patient is able to plantarflex and dorsiflex actively. Sensation is intact to light touch to saphenous, sural, superficial and deep peroneal, and tibial distribution. Mepilex dressing has moderate drainage of the distal one third contacting 1 border. We will continue to monitor this. Discussed with nursing that if there is further drainage she is to remove the Mepilex dressing and then utilize ABDs and Higinio wrap for compression. If remains stable will most likely switch out Mepilex dressing prior to discharge Negative Homans bilaterally, negative signs and symptoms of DVT. Const alert, oriented x3 and no apparent distress Assessment & Plan Assessment/Plan (1) Status post revision of total replacement of left knee: PLAN: 1. S/P revision left total knee arthroplasty POD #1 2. Continue Pain Medications: Tylenol and oxycodone. We are avoiding nonsteroidal anti-inflammatories as patient did have some elevated kidney function preoperatively. She has also had previous history of gastric sleeve 3. DVT Prophylaxis: Take 81 mg aspirin twice daily for 4 weeks postoperatively for DVT prophylaxis. Patient denies past history of DVT or pulmonary embolism 4. PT/OT: Weightbearing as tolerated with walker 5. H & H: 11.5/36.5, asymptomatic. Lab work has been reviewed and monitoring patient's hemoglobin and hematocrit with postoperatively without any intra operative complications. At this time no treatment is required. 6. Reactive leukocytosis: Currently 12.0, afebrile. Patient did receive Decadron intraoperatively. No clinical signs of infection 7. Postoperative drainage: We are going to continue to monitor the drainage overnight. She has moderate drainage with the Mepilex dressing contacting 1 border. Discussed with nursing and if there is further drainage I would recommend we remove the Mepilex dressing and utilize ABDs with Higinio wrap and sandbag. If the dressing remains stable with drainage will replace Mepilex dressing prior to discharge. 8. Continue postoperative medical management per medicine 9. Currently on doxycycline for 2 weeks postoperatively. Microbiology wound and tissue specimens pending in chart. I discussed with the patient potential side effects of doxycycline including sensitivity to the sunlight and increased risk of skin burn. Recommend patient take appropriate precautions. Also recommend patient to take probiotic while on the antibiotic. Patient voiced understanding agreement. 10. Encouraged Incentive Spirometry 11. Disposition: Plan will be for patient to stay an additional night as we are continuing to monitor her postoperative drainage. Would also like to monitor lab work with microbiology. She is currently on doxycycline. Microbiology has currently been pending. She will continue with physical therapy while in hospital. She does have outpatient physical therapy established. Case was discussed with her nurse with regards to MARTHA hose and Mepilex dressing. As long as patient is stable plan will be for discharge home tomorrow. I have reviewed the [place] Automated Rx Reporting System (OARRS) report for this patient for refill pattern and other prescriber involvement as part of the appropriate surveillance for the provision of acute and chronic controlled medications. The report was requested and reviewed on the date of this entry and was considered in the prescribing process. This dictation was created using voice recognition software. Phonetic and/or grammatical errors may exist.
[2023-02-15] MEDS: Loratadine 10 MG Tablet PO (09:35)
[2023-02-15] MEDS: Senna/Docusate Sodium 1 Tablet 2 TABLET PO ×2 (09:35→21:55)
[2023-02-15] MEDS: Calcium Carbonate 500 MG Tablet PO (09:35)
[2023-02-15] MEDS: Pantoprazole Sodium 20 MG Tablet PO (09:35)
[2023-02-15] MEDS: Doxycycline 100 MG CAPSULE PO ×2 (09:35→21:55)
[2023-02-15] MEDS: Ensure Surgery 237 ML LIQUID PO ×2 (09:35→16:47)
[2023-02-15] MEDS: Aspirin 81 MG TAB.CHEW PO ×2 (09:36→16:48)
[2023-02-15] MEDS: Cholecalciferol (VIT D3) 25 MCG TABLET (1,000 UNITS) 50 MCG PO (09:36)
[2023-02-15] MEDS: Famotidine 20 MG Tablet PO (09:36)
[2023-02-15] MEDS: Multivitamins,Ther W-Minerals Tablet 1 TABLET PO (09:36)
[2023-02-15 15:08] VITALS: BP 115/61; PULSE 80; RESP 16; TEMP 37.1; O2SAT 96
--- NOTE | 2023-02-15 15:50 | CASEMGMT ---
RN?CM?NEWSPAPER LIBRARY MANAGER?CM?to room to meet with patient for initial transition planning/care coordination?assessment.?RN?CM?introduced self and role at [facility].? Pt voices understanding and consents to?assessment?at this time.? Pt sitting up in chair in room in no distress at this time.? Pt is A/O at this time and answers all questions appropriately.?? Care providers, pharmacy, and demographics verified/updated at this time. PCP: Dr Tena Specialists: Dr Puente-belle Preferred Pharmacy: [facility] Retail Insurance: [email or web address] Prescription Benefit:?Yes Living Will/HPOA:?Pt does not currently have LW/HCPOA LNOK: , Rene. Living Arrangements: Lives w/ in one-story home w/2 steps to enter. Transportation:?Pt states drives self and states no transportation concerns at this time.? also drives. DME: ?States has the following DME:?shower chair, cane, walker ?Pt states no need for further DME at this time.? HHC/SNF: No hx of either. Pt states has an appt for OP therapy scheduled @ [facility] 02/19 and her can taker her. Pt wishes to return home and states has no concerns with going home at time of discharge.??CM?to follow for any discharge planning/needs.? Pt voices no concerns/needs at this time.? Advised pt to ask for?CM?if any questions/concerns/needs arise.? Voices understanding. PLAN:??Home w/OP therapy @ [facility] Rosemarie NORRISN?RN?CM
[2023-02-15 21:46] VITALS: BP 124/74; PULSE 73; RESP 16; TEMP 36.8; O2SAT 96
[2023-02-16 04:00] VITALS: BP 125/70; PULSE 72; RESP 14; TEMP 36.5; O2SAT 97
[2023-02-16] MEDS: oxyCODONE 5 MG Tablet PO ×2 (04:14→08:54)
[2023-02-16] MEDS: Acetaminophen 500 MG Tablet 1000 MG PO (04:14)
[2023-02-16 05:09] LABS: Hematocrit 35.7 % (37-47); Hemoglobin 11.2 g/dL (12.0-15.0); Mean Corp Hgb Conc 31.4 g/dL (32-36); Mean Corpuscular Hgb 30.5 pg (27.0-32.0); Mean Corpuscular Volume 97.3 fL (81-99); Mean Platelet Vol. 9.4 fl (6.2-12.0); Platelet Count 261 K/mm3 (150-450); RBC Distribution Width CV 12.4 % (11.6-14.6); RBC Distribution Width SD 44.2 fl (35.1-43.9); Red Blood Count 3.67 M/mm3 (4.2-5.4); White Blood Count 8.6 K/mm3 (4.4-11.0)
--- NOTE | 2023-02-16 06:27 | PCM.PN.ORT ---
Subjective Subjective The patient was sitting in bed upon examination. Patient denies any chest pain, shortness of breath, dizziness, lightheadedness, nausea or vomiting, or calf pain. Pain is controlled on medications. No adverse overnight events. Patient overall is doing well this morning. No significant complaints. She has done well with physical therapy walking 300 feet. The drainage has been stable with the Mepilex dressing. Microbiology was reviewed in which there is no growth on Gram stain and cultures are pending. Objective Data Objective Data Vital Signs: Vital Signs Temp Pulse Resp BP Pulse Ox O2 Del Method O2 Flow Rate 97.7 F L 72 14 125/70 H 97 Room Air 4 02/16/23 04:00 02/16/23 04:00 02/16/23 04:00 02/16/23 04:00 02/16/23 04:00 02/16/23 04:00 02/14/23 17:15 Oxygen Flow Rate (L/min) 4 Oxygen Delivery Method Room Air Weight: 117 kg Body Mass Index (BMI) 45.6 Intake & Output: Intake and Output for Last 24 Hours 02/14/23 02/15/23 02/16/23 23:59 23:59 23:59 Intake Total 3482 / 3482 50 / 450 400 / 400 Output Total 800 / 800 700 / 700 Balance 2682 / 2682 -650 / -250 400 / 400 Lab / Micro Data 02/16/23 04:20 02/15/23 06:55 Labs: Laboratory Results - last 24 hr 02/14/23 14:18: Acid Fast Stain Cancelled, Miscellaneous Cytology Cancelled 02/14/23 14:20: Acid Fast Stain Cancelled, Miscellaneous Cytology Cancelled 02/14/23 14:22: Acid Fast Stain Cancelled, Miscellaneous Cytology Cancelled 02/15/23 06:55: WBC 12.0 H, RBC 3.81 L, Hgb 11.5 L, Hct 36.5 L, MCV 95.8, MCH 30.2, MCHC 31.5 L, RDW Std Deviation 42.1, RDW Coeff of Farideh 12.1, Plt Count 291, MPV 9.3, Sodium 140, Potassium 4.0, Chloride 108 H, Carbon Dioxide 29.0, Anion Gap 3 L, BUN 14, Creatinine 0.55, Estim Creat Clear Calc 92.23, Est GFR (MDRD) Af Amer 145, Est GFR (MDRD) Non-Af 120, BUN/Creatinine Ratio 25.3 H, Glucose 100, Calcium 8.3 L 02/16/23 04:20: WBC 8.6, RBC 3.67 L, Hgb 11.2 L, Hct 35.7 L, MCV 97.3, MCH 30.5, MCHC 31.4 L, RDW Std Deviation 44.2 H, RDW Coeff of Farideh 12.4, Plt Count 261, MPV 9.4 Micro: Microbiology 02/14/23 14:22 Tissue - Femoral Membrane Gram Stain - Final 02/14/23 14:22 Tissue - Femoral Membrane Wound Culture - Preliminary No growth-Final to follow 02/14/23 14:20 Tissue - Tibial Membrane Gram Stain - Final 02/14/23 14:20 Tissue - Tibial Membrane Wound Culture - Preliminary No growth-Final to follow 02/14/23 14:18 Tissue - Suprapatellar Pouch Gram Stain - Final 02/14/23 14:18 Tissue - Suprapatellar Pouch Wound Culture - Preliminary No growth-Final to follow 01/22/23 11:09 Swab (Method) Nasal Screen MRSA/MSSA - Final Physical Exam Narrative Vital signs stable and afebrile. SCDs are in place bilaterally. Patient was unable to use MARTHA hose due to body habitus. Patient is able to plantarflex and dorsiflex actively. Sensation is intact to light touch to saphenous, sural, superficial and deep peroneal, and tibial distribution. Mepilex dressing has been stable with drainage over the distal one third. Plan will be for placement of new Mepilex dressing prior to discharge. Discussed with nursing. Negative Homans bilaterally, negative signs and symptoms of DVT. Const alert, oriented x3 and no apparent distress Assessment & Plan Assessment/Plan (1) Status post revision of total replacement of left knee: PLAN: 1. S/P revision left total knee arthroplasty POD #2 2. Continue Pain Medications: Tylenol and oxycodone. We are avoiding nonsteroidal anti-inflammatories as patient did have some elevated kidney function preoperatively. She has also had previous history of gastric sleeve 3. DVT Prophylaxis: Take 81 mg aspirin twice daily for 4 weeks postoperatively for DVT prophylaxis. Patient denies past history of DVT or pulmonary embolism 4. PT/OT: Weightbearing as tolerated with walker 5. H & H: 11.2/35.7, asymptomatic. Lab work has been reviewed and monitoring patient's hemoglobin and hematocrit with postoperatively without any intra operative complications. At this time no treatment is required. 6. Reactive leukocytosis: Resolved currently 8.6, afebrile. Patient did receive Decadron intraoperatively. No clinical signs of infection 7. Postoperative drainage: Drainage has been stable since yesterday. She has moderate drainage with the Mepilex dressing contacting 1 border. Discussed case with nursing and placement of new silver Mepilex 12 inch dressing will be placed prior to discharge. Patient will move the dressing on February 20, 2023 8. Continue postoperative medical management per medicine 9. Currently on doxycycline for 2 weeks postoperatively. Microbiology wound and tissue specimens were reviewed in chart and there is currently no growth or organisms seen today. I discussed with the patient potential side effects of doxycycline including sensitivity to the sunlight and increased risk of skin burn. Recommend patient take appropriate precautions. Also recommend patient to take probiotic while on the antibiotic. Patient voiced understanding agreement. Discussed with the patient that we will continue to follow these over the next 12 days and if any changes will contact her outpatiently. 10. Encouraged Incentive Spirometry 11. Disposition: Plan will be for discharge home today as patient has been stable. She has tolerated physical therapy. The pain has been well controlled. Plan will be for placement of new Mepilex dressing prior to discharge. She has been unable to wear the MARTHA hose due to body habitus and she was recommended to make sure she is elevating the lower extremity above her heart multiple times daily. Explained to her that she is at greater risk for more swelling due to no use of MARTHA hose. She will continue with icing. She would like her prescriptions E scribed to [facility] pharmacy. She has outpatient physical therapy established. She will follow-up per postoperative instructions. Upon discharge she will contact her office with any concerns or questions. Patient has also been instructed to continue the stool softener in which she has not had a bowel movement but has been passing gas. If she has not had bowel movement by day 3 she does have other stool softeners/laxatives at home that she can attempt to use. Any concerns contact our office. I have reviewed the [place] Automated Rx Reporting System (OARRS) report for this patient for refill pattern and other prescriber involvement as part of the appropriate surveillance for the provision of acute and chronic controlled medications. The report was requested and reviewed on the date of this entry and was considered in the prescribing process. This dictation was created using voice recognition software. Phonetic and/or grammatical errors may exist.
--- NOTE | 2023-02-16 06:32 | DCINST_ITS ---
Discharge Instructions Diet Discharge Diet: No restrictions Activity Discharge Activity: May Not Drive (No driving until you can walk 100 feet with the use of a cane and off narcotics) May shower in (days): 1 (Please turn dressing away from water. Okay to get wet as long as dressing is intact to skin.) Ice area for (Minutes): 20 (Every 1-2 hours while awake[address] Please place barrier between the skin and ice pack.) Weight Bearing Status: Weight bearing as tolerated Keep extremity elevated above heart level: Operative Extremity Dressing / Incision Call your doctor if your incision/area has: Continuous Slow Oozing, Sudden Increased Bleeding, Increased Pain/ Swelling, Increased Redness and Foul Smelling Discharge Call your doctor if you observe: Fever of 101 or Higher, Coldness, Increased Pain, Numbness or Tingling, Change in Color, Shortness of breath, Chest pain, Calf discomfort and Uncontrolled pain Remove Dressing in: 3 days (Remove Mepilex dressing on February 19, 2023) Additional Dressing/Incision Instructions:: Follow [facility] Post-op Instructions. Once postoperative dressing has been removed only use gentle soap and water over the incision. Do not use any ointments, Neosporin, salves, alcohol pads over the incision for 6 weeks postoperatively. Do not submerge underwater for 6 weeks postoperatively. Since not using the MARTHA hose make sure you are elevating the left lower extremity above the heart multiple times daily. You are at more risk for swelling in that leg. Do NOT use alcohol with narcotic pain medication. Do NOT make important decisions while taking narcotic medication. If you have problems with taking your medication (rash, itching, nausea, etc.) call the office at once. Follow Up Care Test Results: Test results from this visit will be discussed in further detail at your follow- up appointment, if applicable. Discharge Plan Admission Admit Date/Time: 02/14/23 10:56 Attending Provider: Valentino Puente Primary Care Provider: Judson Tena Consulting Providers: Yael Juarez Discharge Orders/Prescriptions Prescriptions: New acetaminophen 500 mg Tablet 1,000 mg PO Q8 14 Days Qty: 84 0RF Rx Instructions: Do not take more than 3000 mg Tylenol in a 24-hour period. aspirin 81 mg tablet,delayed release (DR/EC) 81 mg PO BIDCM 28 Days Qty: 56 0RF Rx Instructions: Take 81 mg aspirin twice daily for 4 weeks postoperatively for DVT prophylaxis. doxycycline monohydrate 100 mg Capsule 100 mg PO BID 13 Days Qty: 26 0RF Rx Instructions: Take for 2 weeks postoperatively oxycodone 5 mg Tablet 5 - 10 mg PO Q4H PRN PRN (Reason: Pain Score 4-10) 7 Days Qty: 42 0RF sennosides-docusate sodium [Stool Softener-Stimulant Laxat] 8.6-50 mg Tablet 2 tab PO BID 3 Days Qty: 12 0RF Rx Instructions: Take until first bowel movement, then as needed Continued Complete Multivitamin tablet 1 tab PO DAILY pantoprazole 20 MG tablet 20 mg PO DAILY cetirizine 10 MG capsule 10 mg PO DAILY cholecalciferol (vitamin D3) [D3-2000] 50 mcg (2,000 unit) capsule 50 mcg PO DAILY calcium carbonate [Calcium 500] 500 mg calcium (1,250 mg) tablet,chewable 500 mg PO DAILY biotin 5 mg capsule 5 mg PO DAILY Other Ambulatory Orders: 12 Lead EKG (Routine) Timeframe: 20230122 Location: None Selected Ordered By: Dr. Valentino Puente Referrals / Follow Up: Judson Tena DO [Primary Care Provider] - Physical,Therapy [Other] - 02/19/23 Bridget Arauz PA [Med Staff - [facility] Practice Prof] - 02/28/23 9:30 am Disposition Disposition (needs filled in before D/C Order can be placed): Home, Self Care
[2023-02-16] MEDS: Aspirin 81 MG TAB.CHEW PO (08:51)
[2023-02-16] MEDS: Doxycycline 100 MG CAPSULE PO (08:52)
[2023-02-16] MEDS: Famotidine 20 MG Tablet PO (08:52)
[2023-02-16] MEDS: Loratadine 10 MG Tablet PO (08:52)
[2023-02-16] MEDS: Calcium Carbonate 500 MG Tablet PO (08:52)
[2023-02-16] MEDS: Pantoprazole Sodium 20 MG Tablet PO (08:52)
[2023-02-16] MEDS: Multivitamins,Ther W-Minerals Tablet 1 TABLET PO (08:52)
[2023-02-16] MEDS: Senna/Docusate Sodium 1 Tablet 2 TABLET PO (08:52)
[2023-02-16] MEDS: Cholecalciferol (VIT D3) 25 MCG TABLET (1,000 UNITS) 50 MCG PO (08:53)
[2023-02-16 09:22] VITALS: BP 126/87; PULSE 82; RESP 16; TEMP 37.5; O2SAT 96
--- NOTE | 2023-02-16 09:43 | PHA.DC_ITS ---
Pharmacy [facility] has performed discharge medication reconciliation and counseling for this patient. The patient's discharge medication list was reviewed for discrepancies and discrepancies were resolved. The patient was counseled on the following discharge medications and changes in medications for homegoing were reviewed. The Reason for Use, instructions for use, and potential side effects were reviewed for all new medications. The patient's questions regarding all of their medications were answered. 1. Acetaminophen 1000 mg PO Q8H 2. Oxycodone 5-10 mg PO Q4H PRN pain 3. Senna/docusate 2 tabs PO BID then PRN 4. Doxycycline 100 mg PO BID 5. Aspirin 81 mg PO BID The patient was able to verbally demonstrate an understanding of their discharge medications. Medications at Discharge Home Medications cetirizine 10 mg capsule 10 mg PO DAILY ENVIRONMENTAL ALLERGIES 08/23/18 pantoprazole 20 mg tablet,delayed release 20 mg PO DAILY GERD 08/23/18 multivitamin,[id number] (Complete Multivitamin tablet) 1 tab PO DAILY SUPPLEMENT 08/27/18 biotin 5 mg capsule 5 mg PO DAILY SUPPLEMENT 01/19/23 calcium carbonate 500 mg calcium (1,250 mg) chewable tablet (Calcium 500) 500 mg PO DAILY SUPPLEMENT 01/19/23 cholecalciferol (vitamin D3) 50 mcg (2,000 unit) capsule (D3-2000) 50 mcg PO DAILY SUPPLEMENT 01/19/23 acetaminophen 500 mg tablet 1,000 mg (2 x 500 mg) PO Q8 14 days #84 tabs 02/16/23 aspirin 81 mg tablet,delayed release 81 mg PO BIDCM 28 days #56 tabs 02/16/23 doxycycline monohydrate 100 mg capsule 100 mg PO BID 13 days #26 caps 02/16/23 oxycodone 5 mg tablet 5 - 10 mg (1 - 2 x 5 mg) PO Q4H PRN PRN Pain Score 4-10 7 days #42 tabs 02/16/23 sennosides 8.6 mg-docusate sodium 50 mg tablet (Stool Softener-Stimulant Laxative) 2 tab PO BID 3 days #12 tabs 02/16/23
== END 2023-02-16 10:58 | disposition home or self-care (01) | DRG 467 ==
LOC: ACINP 10:57 → MS3 16:05
PROVIDERS: Anesthesiology; Admitting Provider Specialist; PCP Family Medicine; Referring Provider Specialist; Visit Provider Specialist
PROC: 0SRD0J9 Replacement of Left Knee Joint with Synthetic Substitute, Cemented, Open Approach (ICD-10-PCS; principal; 2023-02-14 12:05)
DX: T84.033A Mechanical loosening of internal left knee prosthetic joint, initial encounter (principal); Z68.42 Body mass index [BMI] 45.0-49.9, adult; T84.84XA Pain due to internal orthopedic prosthetic devices, implants and grafts, initial encounter; E66.01 Morbid (severe) obesity due to excess calories; I10 Essential (primary) hypertension; K21.9 Gastro-esophageal reflux disease without esophagitis; Y79.2 Prosthetic and other implants, materials and accessory orthopedic devices associated with adverse incidents; Z96.653 Presence of artificial knee joint, bilateral; Z87.891 Personal history of nicotine dependence
CPT/HCPCS: 36415; 73560; 80048; 82040; 82962; 83735; 85025; 85027; 87015; 87070; 87075; 87081; 87102; 87116; 87205; 87206; 93005; 94668; 97110; 97116; 97162; 97166; 97530; 97535; 99252; C1776; J7120; G0463; J3475

== ENCOUNTER 2023-04-17 08:00 | Outpatient (RCR) | payer OTHER, SELFPAY ==
--- NOTE | 2023-02-21 06:46 | HP.PTEVAL_ITS ---
Patient's Visit Information Visit Information Visit Information: REEMA ORELLANA is a 57 year old F referred to Physical Therapy by Marquise Chamorro PA-C with a diagnosis of L TKA revision. DOS: 02/16/23. Date of Evaluation: 02/19/23 Physical Therapist: Colin Nuñez DPT Visit Plan Frequency: 3x /Week Duration: 6 Weeks Plan: Start with ROM progressing end ranges. Add in gait education for stability with AD, progressing from AD as able and safe. Add in functional mobility progressing to strength as tolerated. May use ice to add in symptoms management. Subjective Subjective: Pt. is here today for her initial evaluation with L TKA. DOS: 02/16/23. Pt. reports overall doing well. She arrives using standard walker. Pt. works for [employer] at [employer]. Pt. reports minimal pain. Denies N/T, no calf pain, no fever or dizziness. pt. has been icing, but not much exercises at home. Only been home a few days. She is trying to walk more and more. This is a revision of a previous TKA from ~10 years ago. Hardware was losening. Pt. is hopeful to get back to all work and recreational activities without limitations. Pain L knee: Pain Intensity (Out of 10): 4 Pain Intensity Range: 3 and 8 Objective Objective: POSTURE: forward flexed posture. Wide subhash, slight increase in wt shift to R side. PALPATION. Bandage removed. Incision looks good. Slightly shiney at distal end., No signs of infection. No redness. Negative homans. NEURO: Normal. Normal Heel/toe raises. ROM: L knee: 0-0-78deg. PROM. MMT: RLE: ankle 5/5 throughout; knee; Ext 28#, flexion 21#. LLE: ankle 5/5 throughout; knee: ext 0#, flexion 4#. girth: 4 cm difference between the two at mid patella. GAIT: Pt. ambulates with standard walker, but does not use well. Tried to educate proper use, but was difficult to complete. Pt. does have good stability with gait. Balance/Special Test Scores TUG Test Time Seconds: 49 30 Second Chair Rise Test Seconds: 4 WOMAC Total Score: 96 WOMAC Percentatge: 0 Goals Goal 1:: LTG: pt. to be I with HEP for ROM and LE strengthening. Goal Time Frame: 4-6 Weeks Goal 2:: LTG: Pt. to be able to ambulate without AD with normalized gait pattern for 1000'. Goal Time Frame: 4-6 Weeks Goal 3:: STG: Pt. to have increased L knee ROM to 0-0-120deg allowing for completion of all ADls and stairs.. Goal Time Frame: 2-4 Weeks Goal 4:: LTG: PT. to have increased LLE strength symmetrical to R allowing for increased safety/stability with stairs and all work activities. Goal Time Frame: 4-6 Weeks Goal 5:: STG: pt. to decreased edema in LLE making girth symmetrical to R LE, allowing for proper healing environment. Goal Time Frame: 2-4 Weeks Goal 6:: LTG: pt. to complete TUG in less than 10sec without use of AD indicating proper stability and functional mobility. Goal Time Frame: 4-6 Weeks Rehabilitation Potential Physical Therapy Diagnosis: Pt. has signs and symptoms consistent with L TKA revision. Pt. has marked hypomobility, weakness, increased pain and difficulty walking. pt. would benefit from PT to address the above limitations. Rehabilitation Potential: Excellent Anticipated Interventions Patient/Client Instruction: Educate patient on: Condition, Plan of Care, Risk Factors and Benefits of Fitness Program For the Purpose of:: To foster healthy habits, To improve decision making, To facilitate caregiver knowledge, To improve self management, To improve ability to perform tasks related to life management and To improve tolerance to ADL's Therapeutic Exercise to Include: Strength training, Power training, Endurance training, Balance training, Postural training, Flexibilty training, Gait and locomotor training, Passive ROM and Active ROM For the Purpose of:: To decrease pain, To increase ROM, To improve nutrient delivery to tissue, To increase oxygenation perfusion, To improve muscle performance and motor function, To improve ability to perform ADL's, To increase tolerance to activity/condition/position, To improve ability of physical actions for home/community/work/leisure, To improve gait and locomotor functions, To improve health of tissue, To decrease soft tissue restriction and To increase flexibility/ROM Cryotherapy (ice pack, ice massage): Yes For the Purpose of:: To decrease pain, To decrease swelling/inflammation and To increase ROM Text: Thank you for the opportunity to evaluate your patient. For Medicare and Medicare HMO plans, please review the plan of care and approve it. It will need to be FAXED BACK to us at [phone] for Medicare purposes. For Medicare only, by signing this I certify the plan of care. Please let me know if there are questions or concerns regarding this plan of care. Physician Signature : Date:
--- NOTE | 2023-03-20 09:55 | HP.PTREVAL_ITS ---
Re-Evaluation Intro: Marquise Chamorro PA-C, It has been my pleasure to treat GISSEL ORELLANA over the last 12 visits for L TKA revision. DOS: 02/16/23. Please see the progress note below for an update on the physical therapy plan of care! Subjective Subjective: Pt. reports overall doing well. Pt. arrives with out use of AD. Pt. reports mild pain, but overall doing well. Pt. to follow up with physician on the of this month. Objective Objective/Function: Pt. has been going to local gym and trying to exercises. Pt. reports overall doing well. ROM: AROM 0-5-112. PROM: 0-2-117deg MMT: R knee: ext 35.7#, flexion 21#; L knee: ext 33.1#, flexion 25.9# GAIT: Pt. ambulates without AD. pt. has good tolerance with gait. Pt. does ambulate with slight lack of TKE, but has good swing phase with gait. TUG: Pt. completed in 10.4sec without AD. STAIRS: Pt. completed with 2 HR with good control. Pt. does have some weakness with ascending on LLE, and lack of control with increased pain during descending on LLE. Plan Plan Plan: I am recertifying Gissel for another 4 weeks, x2 per week. 1) work on end ranges of motion 2) gait progression, mechanics. 3) functional strengthening, with focus on getting ready for work related activities. Pt. will have to stand multiple hours per day. Balance/Gait/Functional tests Balance/Special Test Scores TUG Test Time Seconds: 10.4 Tug Test: >30sec.=impaired mobility 30 Second Chair Rise Test Seconds: 7 WOMAC Total Score: 96 WOMAC Percentage: 0 Goals Goals Goal 1:: LTG: pt. to be I with HEP for ROM and LE strengthening. Goal Time Frame: 4-6 Weeks Goal Progress: Progressing Goal 2:: LTG: Pt. to be able to ambulate without AD with normalized gait pattern for 1000'. Goal Time Frame: 4-6 Weeks Goal Progress: Progressing Goal 3:: STG: Pt. to have increased L knee ROM to 0-0-120deg allowing for completion of all ADls and stairs.. Goal Time Frame: 2-4 Weeks Goal Progress: Progressing Goal 4:: LTG: PT. to have increased LLE strength symmetrical to R allowing for increased safety/stability with stairs and all work activities. Goal Time Frame: 4-6 Weeks Goal Progress: Progressing Goal 5:: STG: pt. to decreased edema in LLE making girth symmetrical to R LE, a llowing for proper healing environment. Goal Time Frame: 2-4 Weeks Goal Progress: Progressing Goal 6:: LTG: pt. to complete TUG in less than 10sec without use of AD indicating proper stability and functional mobility. Goal Time Frame: 4-6 Weeks Goal Progress: Progressing Anticipated Interventions Anticipated Interventions Patient/Client Instruction: Educate patient on: Condition, Plan of Care, Risk Factors and Benefits of Fitness Program For the Purpose of:: To foster healthy habits, To improve decision making, To facilitate caregiver knowledge, To improve self management, To improve ability to perform tasks related to life management and To improve tolerance to ADL's Therapeutic Exercise to Include: Strength training, Power training, Endurance t raining, Balance training, Postural training, Flexibilty training, Gait and locomotor training, Passive ROM and Active ROM For the Purpose of:: To decrease pain, To increase ROM, To improve nutrient delivery to tissue, To increase oxygenation perfusion, To improve muscle performance and motor function, To improve ability to perform ADL's, To increase tolerance to activity/condition/position, To improve ability of physical actions for home/community/work/leisure, To improve gait and locomotor functions, To improve health of tissue, To decrease soft tissue restriction and To increase flexibility/ROM Cryotherapy (ice pack, ice massage): Yes For the Purpose of:: To decrease pain, To decrease swelling/inflammation and To increase ROM Re-Evaluation Ending Re-evaluation ending: Please do not hesitate to contact me at [phone] by phone or if you have questions or concerns regarding this new plan of care! Sincerely, Colin Nuñez DPT
--- NOTE | 2023-04-11 14:04 | HP.PTREVAL_ITS ---
Re-Evaluation Intro: Marquise Chamorro PA-C, It has been my pleasure to treat REEMA ORELLANA over the last 18 visits for L TKA revision. DOS: 02/16/23. Please see the progress note below for an update on the physical therapy plan of care! Subjective Subjective: Pt. reports overall doing much better. 97% better overall. Objective Objective/Function: 6 MWT: 1368feet without AD GAIT: Pt. has slight antalgic pattern, but reports no pain with gait. Pt. is able to improve with VCing, but falls back into bad patterns. TU.9sec without AD MMT: Pt. has good symmetrical strength of BLEs. RLE: knee ext 40.1#, flexion 24 .7#; hip: flexion 23.1#. LLE: knee ext 39.7#; flexion 21.8#; hip: flexion 21.9#. STAIRS: Normal pattern with good control with out use of HR. 0-0-120deg passive ROM, AROM: 0-2-119deg. I would like her to be able to achieve TKE more easily. She did have some questions about returning to work. I will defer to physician. She is good strength, but I would like her to be a little straighter. Pt. is overall doing very well. Plan Plan Plan: Cont. to work on end range extension and progressive strengthening and gait progression. Balance/Gait/Functional tests Balance/Special Test Scores TUG Test Time Seconds: 7.9 Tug Test: <10 sec.=free mobile 30 Second Chair Rise Test Seconds: 7 WOMAC Total Score: 12 WOMAC Percentage: 87.5000 Goals Goals Goal 1:: LTG: pt. to be I with HEP for ROM and LE strengthening. Goal Time Frame: 4-6 Weeks Goal Progress: Goal Met Goal 2:: LTG: Pt. to be able to ambulate without AD with normalized gait pattern for 1000'. Goal Time Frame: 4-6 Weeks Goal Progress: Goal Met Goal 3:: STG: Pt. to have increased L knee ROM to 0-0-120deg allowing for completion of all ADls and stairs.. Goal Time Frame: 2-4 Weeks Goal Progress: Progressing Goal 4:: LTG: PT. to have increased LLE strength symmetrical to R allowing for increased safety/stability with stairs and all work activities. Goal Time Frame: 4-6 Weeks Goal Progress: Progressing Goal 5:: STG: pt. to decreased edema in LLE making girth symmetrical to R LE, allowing for proper healing environment. Goal Time Frame: 2-4 Weeks Goal Progress: Goal Met Goal 6:: LTG: pt. to complete TUG in less than 10sec without use of AD indicating proper stability and functional mobility. Goal Time Frame: 4-6 Weeks Goal Progress: Goal Met Anticipated Interventions Anticipated Interventions Patient/Client Instruction: Educate patient on: Condition, Plan of Care, Risk Factors and Benefits of Fitness Program For the Purpose of:: To foster healthy habits, To improve decision making, To facilitate caregiver knowledge, To improve self management, To improve ability to perform tasks related to life management and To improve tolerance to ADL's Therapeutic Exercise to Include: Strength training, Power training, Endurance training, Balance training, Postural training, Flexibilty training, Gait and locomotor training, Passive ROM and Active ROM For the Purpose of:: To decrease pain, To increase ROM, To improve nutrient delivery to tissue, To increase oxygenation perfusion, To improve muscle performance and motor function, To improve ability to perform ADL's, To increase tolerance to activity/condition/position, To improve ability of physical actions for home/community/work/leisure, To improve gait and locomotor functions, To improve health of tissue, To decrease soft tissue restriction and To increase flexibility/ROM Cryotherapy (ice pack, ice massage): Yes For the Purpose of:: To decrease pain, To decrease swelling/inflammation and To increase ROM Re-Evaluation Ending Re-evaluation ending: Please do not hesitate to contact me at [phone] by phone or if you have questions or concerns regarding this new plan of care! Sincerely, Colin Nuñez DPT
--- NOTE | 2023-04-23 07:49 | HP.PTREVAL_ITS ---
Re-Evaluation Intro: Marquise Chamorro PA-C, It has been my pleasure to treat REEMA ORELLANA over the last 21 visits for L TKA revision. DOS: 02/16/23. Please see the progress note below for an update on the physical therapy plan of care! Subjective Subjective: Pt reports no pain lately and was able to perform unweighted squat in gym yesterday with no pain. Objective Objective/Function: ROM: ext -5 with OP, flex 123 with OP *Pt demo'd good self stretch technique to increase knee ext MMT: L 22.9 R 20.3 Stairs: normal reciprocal pattern with UE support as needed Edema: 54cm B Pt reports feeling ready to go back to work based on return to function in gym, limited pain/stiffness, and improved stair mechanics. Plan Plan Plan: Pt to f/u with MD later this week, expected d/c pending physician approval. Balance/Gait/Functional tests Balance/Special Test Scores TUG Test Time Seconds: 7.9 Tug Test: <10 sec.=free mobile 30 Second Chair Rise Test Seconds: 7 WOMAC Total Score: 12 WOMAC Percentage: 87.5000 Goals Goals Goal 1:: LTG: pt. to be I with HEP for ROM and LE strengthening. Goal Time Frame: 4-6 Weeks Goal Progress: Goal Met Goal 2:: LTG: Pt. to be able to ambulate without AD with normalized gait pattern for 1000'. Goal Time Frame: 4-6 Weeks Goal Progress: Goal Met Goal 3:: STG: Pt. to have increased L knee ROM to 0-0-120deg allowing for completion of all ADls and stairs.. Goal Time Frame: 2-4 Weeks Goal Progress: Goal Met Goal 4:: LTG: PT. to have increased LLE strength symmetrical to R allowing for increased safety/stability with stairs and all work activities. Goal Time Frame: 4-6 Weeks Goal Progress: Goal Met Goal 5:: STG: pt. to decreased edema in LLE making girth symmetrical to R LE, allowing for proper healing environment. Goal Time Frame: 2-4 Weeks Goal Progress: Goal Met Goal 6:: LTG: pt. to complete TUG in less than 10sec without use of AD indicating proper stability and functional mobility. Goal Time Frame: 4-6 Weeks Goal Progress: Goal Met Anticipated Interventions Anticipated Interventions Patient/Client Instruction: Educate patient on: Condition, Plan of Care, Risk Factors and Benefits of Fitness Program For the Purpose of:: To foster healthy habits, To improve decision making, To facilitate caregiver knowledge, To improve self management, To improve ability to perform tasks related to life management and To improve tolerance to ADL's Therapeutic Exercise to Include: Strength training, Power training, Endurance training, Balance training, Postural training, Flexibilty training, Gait and locomotor training, Passive ROM and Active ROM For the Purpose of:: To decrease pain, To increase ROM, To improve nutrient delivery to tissue, To increase oxygenation perfusion, To improve muscle per formance and motor function, To improve ability to perform ADL's, To increase tolerance to activity/condition/position, To improve ability of physical actions for home/community/work/leisure, To improve gait and locomotor functions, To improve health of tissue, To decrease soft tissue restriction and To increase flexibility/ROM Cryotherapy (ice pack, ice massage): Yes For the Purpose of:: To decrease pain, To decrease swelling/inflammation and To increase ROM Re-Evaluation Ending Re-evaluation ending: Please do not hesitate to contact me at [phone] by phone or if you have questions or concerns regarding this new plan of care! Sincerely, Colin Nuñez DPT
--- NOTE | 2023-07-16 10:10 | HP.PT.NRP ---
Patient Information Patient Information: REEMA ORELLANA was seen in my office for initial evaluation on 02/19/23. The following Plan of Care was established for this patient: POC Established Initial Frequency: 3x /Week Initial Duration: 6 Weeks Anticipated Interventions Patient/Client Instruction: Educate patient on: Condition, Plan of Care, Risk Factors and Benefits of Fitness Program For the Purpose of:: To foster healthy habits, To improve decision making, To facilitate caregiver knowledge, To improve self management, To improve ability to perform tasks related to life management and To improve tolerance to ADL's Therapeutic Exercise to Include: Strength training, Power training, Endurance training, Balance training, Postural training, Flexibilty training, Gait and locomotor training, Passive ROM and Active ROM For the Purpose of:: To decrease pain, To increase ROM, To improve nutrient delivery to tissue, To increase oxygenation perfusion, To improve muscle performance and motor function, To improve ability to perform ADL's, To increase tolerance to activity/condition/position, To improve ability of physical actions for home/community/work/leisure, To improve gait and locomotor functions, To improve health of tissue, To decrease soft tissue restriction and To increase flexibility/ROM Cryotherapy (ice pack, ice massage): Yes For the Purpose of:: To decrease pain, To decrease swelling/inflammation and To increase ROM Last Seen Last Seen: This patient was last seen in our office 04/17/23. Pertinent comments regarding their Physical therapy will appear below: Pt. was seen in PT for her TKA. Pt. at her last visit was doing very well. She has not been back to PT and will be DC from PT at this point in time. At this point I will be discontinuing this patient from physical therapy. I would be happy to see this patient again in the future if found appropriate by the physician. Thank you! Colin Nuñez, DPT Balance/Gait/Functional tests Balance/Special Test Scores TUG Test Time Seconds: 7.9 Tug Test: <10 sec.=free mobile 30 Second Chair Rise Test Seconds: 7 WOMAC Total Score: 12 WOMAC Percentage: 87.5000
== END 2023-04-17 19:00 | disposition home or self-care (01) ==
LOC: PT 08:00
PROVIDERS: PCP Family Medicine; Referring Provider Physician Assistant Surgical; Visit Provider Physician Assistant Surgical
DX: T84.033D Mechanical loosening of internal left knee prosthetic joint, subsequent encounter (principal); M25.562 Pain in left knee; Z96.652 Presence of left artificial knee joint
CPT/HCPCS: 97110; 97161; 97164; 97530

== ENCOUNTER → 2023-08-29 | Outpatient (CLI) | payer OTHER, SELFPAY ==
--- NOTE | 2023-08-29 13:36 | RAD_ITS ---
STUDY: X-RAY - CERVICAL SPINE REASON FOR EXAM: Female, 58 years old. Neck pain. TECHNIQUE: 5 view(s) of the cervical spine were obtained on 6 images. COMPARISON: None FINDINGS: Osteopenia. Normal anterior atlantoaxial articulation. Normal odontoid process. Slight reversal of the normal lordotic curve. 3 mm of anterolisthesis of C4 on C5. Diffuse moderate uncovertebral and facet sclerosis. Intervertebral disc space narrowing most marked at C4-5, C5-6 and C6-7. Anterior bony neural foraminal encroachment at C4-5 and C5-6 on the right and C5-6 on the left. Minimal right carotid calcification. RAD/Cerv Spine 4 or 5 Views IMPRESSION: Osteopenia with moderate mid cervical spondylosis as described. No acute abnormality or erosive changes. Electronically Signed: Blayne Ding MD at 15:13 EDT ,
== END | disposition home or self-care (01) ==
LOC: RAD 13:32
PROVIDERS: PCP Family Medicine; Visit Provider Family Medicine
DX: M54.2 Cervicalgia (principal)
CPT/HCPCS: 72050

== ENCOUNTER → 2024-03-03 | Outpatient (CLI) | payer OTHER, SELFPAY ==
[2024-03-03 14:01] LABS: Absolute Lymphocyte Count 1.98 X10^3/uL (0.83-4.51); Absolute Neutrophil Count 4.7 X10^3/uL (2.0-7.7); Basophil# 0.04 X10^3/uL; Basophil% 0.5 % (0-1); Eosinophil# 0.26 X10^3/uL; Eosinophils% 3.3 % (0-5); Hematocrit 42.6 % (37-47); Hemoglobin 13.5 g/dL (12.0-15.0); Lymphocyte # 1.98 X10^3/ul (0.83-4.51); Lymphocyte % 25.5 % (19-41); Mean Corp Hgb Conc 31.7 g/dL (32-36); Mean Corpuscular Hgb 29.7 pg (27.0-32.0); Mean Corpuscular Volume 93.6 fL (81-99); Mean Platelet Vol. 9.3 fl (6.2-12.0); Monocyte# 0.76 X10^3/uL; Monocyte% 9.8 % (0-10); NRBC Flagged by Analyzer 0 % (0-5); Neutrophil # 4.71 X10^3/uL (2.7-7.7); Neutrophil % 60.6 % (47-70); Platelet Count 301 K/mm3 (150-450); RBC Distribution Width CV 12.3 % (11.6-14.6); RBC Distribution Width SD 42.4 fl (35.1-43.9); Red Blood Count 4.55 M/mm3 (4.2-5.4); White Blood Count 7.8 K/mm3 (4.4-11.0)
[2024-03-03 14:26] LABS: ALB/GLOB Ratio 0.9 RATIO (0.9-2.4); AST(SGOT) 14 U/L (15-37); Alanine Aminotransfer ALT/SGPT 22 U/L (13-56); Albumin, Serum 3.3 g/dL (3.2-5.0); Alkaline Phosphatase 97 U/L (45-117); Anion Gap 5 (5-15); BUN 23 mg/dL (7-18); BUN/Creat Ratio 35.8 RATIO (10-20); Calcium,Total 8.8 mg/dL (8.5-10.1); Chloride 108 mmol/L (98-107); Cholesterol 174 mg/dL (200); Creatinine, Serum 0.64 mg/dL (0.55-1.02); EST Glomerular Filtration Rate 100 mL/min (>60); Est Glom Filt Rate - Afr Amer 121 mL/min (>60); Globulin 3.8 g/dL (2.2-4.2); Glucose 100 mg/dL (74-106); High Density Lipoprotein 74 mg/dL; Potassium 4.3 mmol/L (3.5-5.1); Protein, Total 7.1 g/dL (6.4-8.2); Sodium Level 140 mmol/L (136-145); Triglycerides 74 mg/dL; Very Low Density Lipoprotein 15 mg/dL (5-40)
== END | disposition home or self-care (01) ==
LOC: LAB 13:29
PROVIDERS: PCP Family Medicine; Referring Provider Physician Assistant; Visit Provider Physician Assistant
DX: Z00.00 Encounter for general adult medical examination without abnormal findings (principal)
CPT/HCPCS: 36415; 80053; 80061; 85025

== ENCOUNTER 2024-07-16 22:19 | Emergency (ER) | payer OTHER, SELFPAY ==
[2024-07-16 22:20] VITALS: BP 166/98; PULSE 85; RESP 18; TEMP 36.6; O2SAT 100
--- NOTE | 2024-07-16 22:22 | ED.RN ---
SPOKE WITH DEPARTMENT MANAGE ON PHONE, DENIES PT TO BE DRUG TESTED.
--- NOTE | 2024-07-16 22:36 | EX.ED.UPPERE ---
HPI History of Present Illness HPI Narrative: Patient presents with left wrist injury that occurred today. Patient states she tripped over her mop and fell at work today. Patient states she landed on her left wrist. Patient denies any head injury or loss of consciousness. Patient denies any paresthesias or weakness. Patient describes her pain as aching. Patient states her pain is worse with movement. Patient states it is localized to the left wrist and distal forearm. Patient denies any other injuries. Chief Complaint: Upper Extremity Injury Informant: patient Occured/Mechanism Mechanism/Context: Yes fall Onset/Context/Timing Onset: Today Context: Sudden Onset Timing: Continuous Quality of Pain: Aching Location: Left wrist and distal forearm Worsened by: Movement Relieved by: Nothing Associated Symptoms Associated Symptoms: Negative for Parasthesia, Weakness or Loss of Funtion [facility] Medical History Seasonal allergies Wears glasses Gastric reflux Former smoker Shortness of breath on exertion Leg cramps SUDDEN WEIGHT LOSS Hypertension Home Medications ?Medication ?Instructions ?Recorded ?Last Taken ?Type cetirizine 10 mg capsule 10 mg PO DAILY ENVIRONMENTAL 08/23/18 02/14/23 History ALLERGIES pantoprazole 20 mg tablet,delayed 20 mg PO DAILY GERD 08/23/18 02/14/23 History release multivitamin,xi-tryq-gbzczdzw 1 tab PO DAILY SUPPLEMENT 08/27/18 Unknown History (Complete Multivitamin tablet) biotin 5 mg capsule 5 mg PO DAILY SUPPLEMENT 01/19/23 Unknown History calcium carbonate (Calcium 500) 500 mg PO DAILY SUPPLEMENT 01/19/23 Unknown History cholecalciferol (vitamin D3) 50 50 mcg PO DAILY SUPPLEMENT 01/19/23 Unknown History mcg (2,000 unit) capsule (D3-2000) acetaminophen 500 mg tablet 1,000 mg (2 x 500 mg) PO Q8 14 02/16/23 Unknown Rx days #84 tabs aspirin 81 mg tablet,delayed 81 mg PO BIDCM 28 days #56 tabs 02/16/23 Unknown Rx release doxycycline monohydrate 100 mg 100 mg PO BID 13 days #26 caps 02/16/23 Unknown Rx capsule oxycodone 5 mg tablet 5 - 10 mg (1 - 2 x 5 mg) PO Q4H 02/16/23 Unknown Rx PRN PRN Pain Score 4-10 7 days #42 tabs sennosides 8.6 mg-docusate sodium 2 tab PO BID 3 days #12 tabs 02/16/23 Unknown Rx 50 mg tablet (Stool Softener-Stimulant Laxative) celecoxib 200 mg capsule 200 mg PO DAILY 07/16/24 Unknown History hydrocodone-acetaminophen 5-325mg 1 tab PO Q6H PRN PRN Pain 3 days 07/16/24 Unknown Rx 5mg-325mg #10 TABLETS pantoprazole 40 mg tablet,delayed 40 mg PO DAILY 07/16/24 Unknown History release Allergy/AdvReac Type Severity Reaction Status Date / Time amoxicillin Allergy Hives Verified 07/16/24 22:19 Surgical History Status post revision of total replacement of left knee History of esophagogastroduodenoscopy (EGD) History of colonoscopy History of bunionectomy History of History of bariatric surgery History of knee surgery Social History Smoking Status: Former smoker alcohol intake: never ROS ROS ED Constitutional Constitutional ED: Denies chills or fever(s) Eyes Eyes: Denies blurry vision or change in vision ENT ENT ED: Denies rhinorrhea or sore throat Cardiovascular Cardiovascular: Denies chest pain or palpitations Respiratory/Chest Respiratory/Chest: Denies cough or dyspnea Gastrointestinal Gastrointestinal: Denies nausea or vomiting Genitourinary Genitourinary ED: Denies dysuria or hematuria Musculoskeletal Musculoskeletal: Denies back pain or neck pain Integumentary Denies abscess or rash Neurologic Neurologic: Denies headache(s) or weakness Allergic/Immunologic Allergic/Immunologic ED: Denies mouth swelling or urticaria EXAM Physical Exam Const Vital Signs: 07/16/24 22:20 Temperature 97.9 F Temperature Source Temporal Pulse Rate 85 Respiratory Rate 18 Blood Pressure 166/98 H Blood Pressure Mean 120 Pulse Ox 100 Oxygen Delivery Method Room Air Positive well nourished and well developed General Appearance ED: well developed and NAD HEENT Reports moist mucous membranes Neck supple Extremity Extremity Narrative: There is tenderness over the left wrist and distal forearm. There is some mild edema. There is no ecchymosis. There is no deformity noted. Range of motion was limited in all motions of the left wrist secondary to pain. There is no tenderness over the proximal forearm or elbow. There is no tenderness in the anatomic snuffbox. Radial pulses are equal bilaterally. Sensation is intact to light touch in the radial, median, and ulnar areas. Strength is 5/5 in the radial, median, and ulnar areas. Neuro oriented x3, CN's II-XII intact bilaterally, moves all extremities, no focal motor deficits and no sensory deficits noted Sensorium / Orientation: alert Motor Exam: strength 5/5 throughout Psych mental status grossly normal MDM MDM MDM Narrative Medical decision making narrative: Differential diagnosis includes fracture, sprain, and contusion. X-rays of the left wrist will be obtained to assess for fracture. Radiography Diagnostic Testing: X-rays of the left wrist were obtained. There are 4 views. On my independent interpretation, there is a comminuted fracture of the left distal radius. There is dorsal angulation of the distal fragment. There is minimal displacement. There is no associated ulnar styloid fracture. Radiologist also interpreted the x-rays and agrees. Repeat x-rays of the left wrist were obtained. There are 3 views. On my independent interpretation, there is improved alignment of the fracture fragments. Treatment and Re-Evaluation Narrative: Patient was advised of the need for sedation and reduction of the fracture. Patient was given the opportunity ask any further questions. Patient had no further questions. Patient is agreeable to conscious sedation. Patient was placed on continuous cardiac and pulse oximeter monitors. Patient was given a total of 100 mg of propofol. After adequate sedation, the fracture was reduced using traction countertraction. Finger traps were also used. Patient was placed in a well-padded custom made sugar-tong splint using 3 inch Ortho-Glass. Patient tolerated the procedure well. There were no hypoxic episodes. There were no hypercapnic episodes. Repeat x-rays will be obtained to assess for reduction. Repeat x-rays were reviewed. There is improved alignment. Patient was advised that there is still a possibility that this could require surgery however, with the improved alignment it may heal with just casting. Patient was given a prescription for a short course of [place]. Patient states that she has seen Dr. Puente in the past for knee replacement surgery. Patient was given a referral to Dr. Puente for follow-up care. Patient was instructed to ice and elevate the left wrist. Patient was instructed to return if worse in any way. Patient understood and was agreeable with the plan. All questions were answered. Procedures Upper Extremity Splints Upper Extremity Splint: Orthoglass (3 inch) and - (Sugar-tong) Splint Fabrication: Fabricated Location: Left Procedural Sedation 1 (Initial Baseline): Consent Signed: Yes Any Problems With Anesthesia: No Sedation medication: Propofol Dose: 100 Route: IV Maliampati Score: Class II ASA Classification: II Discharge Plan Triage Chief Complaint: Upper Extremity Injury ED Provider: Stewart Hooks Dx/Rx/DC Orders Clinical Impression: Closed fracture of left distal radius, Fall Instructions: ED Fracture, Wrist, General Prescriptions: New hydrocodone-acetaminophen 5-325 mg tablet 1 tab PO Q6H PRN PRN (Reason: Pain) 3 Days Qty: 10 0RF No Action Complete Multivitamin tablet 1 tab PO DAILY pantoprazole 20 MG tablet 20 mg PO DAILY cetirizine 10 MG capsule 10 mg PO DAILY cholecalciferol (vitamin D3) [D3-2000] 50 mcg (2,000 unit) capsule 50 mcg PO DAILY calcium carbonate [Calcium 500] 500 mg calcium (1,250 mg) tablet,chewable 500 mg PO DAILY biotin 5 mg capsule 5 mg PO DAILY acetaminophen 500 mg Tablet 1,000 mg PO Q8 14 Days Qty: 84 0RF Rx Instructions: Do not take more than 3000 mg Tylenol in a 24-hour period. aspirin 81 mg tablet,delayed release (DR/EC) 81 mg PO BIDCM 28 Days Qty: 56 0RF Rx Instructions: Take 81 mg aspirin twice daily for 4 weeks postoperatively for DVT prophylaxis. doxycycline monohydrate 100 mg Capsule 100 mg PO BID 13 Days Qty: 26 0RF Rx Instructions: Take for 2 weeks postoperatively oxycodone 5 mg Tablet 5 - 10 mg PO Q4H PRN PRN (Reason: Pain Score 4-10) 7 Days Qty: 42 0RF sennosides-docusate sodium [Stool Softener-Stimulant Laxat] 8.6-50 mg Tablet 2 tab PO BID 3 Days Qty: 12 0RF Rx Instructions: Take until first bowel movement, then as needed celecoxib 200 mg capsule 200 mg PO DAILY pantoprazole 40 mg tablet,delayed release (DR/EC) 40 mg PO DAILY Stand Alone Forms: Work Status Form Primary Care Provider: Judson Tena Referrals: Judson Tena DO [Primary Care Provider] - Valentino Puente MD [Med Staff - Active Staff] - 3-5 Days Print Language: New Zealander Disposition Disposition: Home, Self Care
--- NOTE | 2024-07-16 22:45 | RAD_ITS ---
EXAM: Left wrist radiographs CLINICAL HISTORY: Fall COMPARISON: None TECHNIQUE: Three-view left wrist radiographs. FINDINGS: Mildly displaced comminuted intra-articular fracture distal radius with slight dorsal angulation. No other fractures are noted. Moderate soft tissue swelling. No radiopaque foreign body. RAD/Wrist min 3 Views IMPRESSION: Mildly displaced comminuted intra-articular distal radial fracture, with soft t issue swelling. Reading Location: [facility]
[2024-07-16 23:11] VITALS: BMI 48.3
[2024-07-16 23:13] VITALS: BMI 48.3
[2024-07-16] MEDS: Morphine 4 MG/ML Syringe IV (23:14)
[2024-07-16 23:16] VITALS: BP 163/91; PULSE 74; RESP 18; TEMP 36.8; O2SAT 100
[2024-07-16 23:20] VITALS: BP 135/81; BP 152/88; BP 158/117; BP 160/94; BP 174/95; PULSE 110; PULSE 73; PULSE 76; PULSE 78; PULSE 79; RESP 16; RESP 18; O2SAT 100; O2SAT 96
[2024-07-16] MEDS: Propofol 200 MG/20 ML Vial IV BOLUS (23:27)
[2024-07-16 23:40] VITALS: BP 156/102; PULSE 98; RESP 18; O2SAT 99
[2024-07-16 23:45] VITALS: BP 152/104; PULSE 109; RESP 18; O2SAT 97
[2024-07-16 23:50] VITALS: BP 170/95; PULSE 74; RESP 18; O2SAT 99
--- NOTE | 2024-07-16 23:59 | RAD_ITS ---
EXAM: Three views of the left wrist CLINICAL HISTORY: Pain COMPARISON: Wrist radiographs dated July 16, 2024 TECHNIQUE: Three views of the left wrist FINDINGS: Interval casting material obscures bony detail. Redemonstration of an acute transversely oriented intra-articular nondisplaced fracture involving the distal radial diametaphysis with mild dorsal angulation. RAD/Wrist 2 Views IMPRESSION: 1. Interval casting material obscures bony detail. 2. Redemonstration of the acute transverse oriented intra-articular nondisplace d fracture involving the distal radial diametaphysis with mild dorsal angulation. Alignment is mildly improved. Reading Location: [id number]
[2024-07-17 00:18] VITALS: BP 162/99; PULSE 103; RESP 18; TEMP 36.7; O2SAT 96
== END 2024-07-17 00:25 | disposition home or self-care (01) ==
PROVIDERS: Emergency Provider Emergency Medicine; PCP Family Medicine; Visit Provider Emergency Medicine
DX: S52.502A Unspecified fracture of the lower end of left radius, initial encounter for closed fracture (principal); W18.09XA Striking against other object with subsequent fall, initial encounter; Y93.E5 Activity, floor mopping and cleaning; Y99.0 Civilian activity done for income or pay; I10 Essential (primary) hypertension; K21.9 Gastro-esophageal reflux disease without esophagitis; Z79.82 Long term (current) use of aspirin; Z79.899 Other long term (current) drug therapy; Z87.891 Personal history of nicotine dependence
CPT/HCPCS: 25605; 73100; 73110; 96374; 99152; 99285; A4216

== ENCOUNTER 2024-11-12 10:00 | Outpatient (RCR) | payer OTHER, SELFPAY ==
--- NOTE | 2024-09-16 09:01 | HP.OTEVAL_ITS ---
Patient's Visit Information Visit Information Visit Information: REEMA ORELLANA is a 59 year old F, referred to Occupational Therapy by Dr. Valentino Puente MD, with a diagnosis of S52.572 OTH INTARTIC FX LOW END L RADIUS. Date of Evaluation: 09/16/24 Occupational Therapist: Germania Fields Subjective Subjective: Pt was at work at [employer] and had FOOSH on LUE resulting in distal radial fx. No sx. DOI was 07/21/24. pt is currently on light duty at work which is everything except excessive mopping bigger areas. Pt reporting no pain at rest today. Pt presenting with splint. Using it creates more pain by the end of the day. Pt wears her brace all the time at work, but takes it off at home. 5# lifting restrictions. pts next f/u with Cindi is October 08. Reports she is getting motion back but still has swelling. Pt is right hand dominant. Objective Objective/Observation: pt presenting with little to no pain upon palpation, only with initial touch with sensitivity, tolerated light manual therapy with minimal pain ROM Forearm: WFL Wrist: WE 50, WF 50, RD 15, UD 25 Opposition: D2-4 TIP, UNABLE TO TOUCH D5 MP: D2-5 70 PIP: WFL DIP: D2 65, D3 50, D4 40, D5 40 ROM Comments: MAKING FULL FIST D4->PALM 1 Strength Insurance Claims Supervisor: R 42, L 8 Lateral Pinch: R 8, L 6 Tip-to-Tip Pinch: R 5, L 4 Edema Wrist: R 17.4CM, L 19.3CM Other: ACROSS MP R 20.4, L 21.8 Quick DASH-Disab of Arm,Shoulder& Hand Quick DASH Score: 61.3625 Goals Goal:: PT TO DEMO IMPROVED L GENERAL SCRAP WORKER STRENGTH BY 15# BY DISCHARGE TO IMPROVE FUNCTIONAL USE OF L HAND DURING WORK TASKS Goal:: PT TO DEMO IMPROVED L WRIST FLEXION BY 15' FOR GREATER FUNCTIONAL USE DURING ADL/IADL TASKS Goal:: PT TO DEMO REDUCED L WRIST AND MP SWELLING BY 1.0CM FOR ALLOWED GREATER MOBILITY THROUGH JOINT Goal:: PT TO DEMO IMPROVED D2-5 DIP TOTAL AROM BY 60' FOR GREATER ABILITY TO MAKE FULL FIST FOR GRASPING HOUSEHOLD ITEMS Goal:: PT TO DEMO IMPROVED FUNCTIONAL ABILITIES PER DECREASED DASH SCORE BY 40 POINTS BY D/C Rehabilitation General Assessment: PT PRESENTING WITH L DISTAL RADIUS FRACTURE S/P FOOSH AT WORK. PT REPORTING LITTLE PAIN AT REST, MOST OF HER PAIN COMES IN THE EVENING. PT PRESENTING WIHT LIMITED AROM IN WRIST FLEXION AND DIGIT DIP FLEXION WELL DECREASED L GENERAL SCRAP WORKER/PINCH STRENGHT COMPARED TO UNEFFECTED SIDE. PT WITH RESIDUAL SWELLING AROUND L WRIST AND DIGITS WHICH MAY BE IMPACTING AROM. PT TOLERATING LIGHT MANUAL WELL THIS DATE. PT WOUDL BENEFIT FROM SKILLED OT SERVICES IN OP SETTING X2/WEEK FOR 5 WEEKS FOR IMPROVED AROM, DECREASED SWELLING AND INCREASED STRENGTH TO RETURN TO PLOF TO RETURN TO WORK WITHOUT RESTRICTIONS. Rehabilitation Potential: Good Anticipated Interventions Anticipated Interventions: A/AAROM/PROM, Strengthening, Edema Control, Massage, Triggerpoint Release, Fine Motor Coord/Feng and ADL Training Visit Plan Frequency: 2x /Week Duration: 6 Weeks General Plan: CONTINUE PER POC FOR X2/WEEK FOR 5 WEEKS FOR IMPROVED AROM/PROM, DECREASED SWELLING AND IMPROVED STRENGTH IN ORDER TO RETURN TO WORK ACTIVITIES AT FULL CAPACITY WITHOUT RESTRICTION. TEXT: Thank you for the opportunity to evaluate your patient. For Medicare and Medicare HMO plans, please review the plan of care and approve it. It will need to be FAXED BACK to us at [phone] for Medicare purposes. Please let me know if there are questions or concerns regarding this plan of care. Physician Signature: Date:
--- NOTE | 2024-11-12 10:13 | HP.OTDCSUM ---
Discharge Summary D/C Summary: It has been my pleasure to treat REEMA ORELLANA under orders from Dr. Valentino Puente MD, for the diagnosis of S52.572 OTH INTARTIC FX LOW END L RADIUS for a total of 15 visit(s). Please see the following information for a summary of their discharge status. 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 pt states is able to perform meal prep. 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 pt agrees to cont. with a Home strengthening program. Pts reports tinging in her left digits since her fall. therapist advised to to make she she tells her drAde about theses symptoms. Pt may need further nerve testing. pt agrees with d/c. 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 HEP D/C Information Discharge Comments: pt has been see for OT following a left wrist fx. d/c sentence: If there are questions or concerns regarding this patient's occupational therapy, please fell free to call me at [phone]. Thank you for the referral of this patient. Sincerely, Madison Dennis, OTR/L, CHT
== END 2024-11-12 19:00 | disposition home or self-care (01) ==
LOC: OT 10:00
PROVIDERS: PCP Family Medicine; Referring Provider Specialist; Visit Provider Specialist
DX: S52.572D Other intraarticular fracture of lower end of left radius, subsequent encounter for closed fracture with routine healing (principal)
CPT/HCPCS: 97110; 97140; 97165; 97530

== ENCOUNTER → 2025-02-03 | Outpatient (CLI) | payer OTHER, SELFPAY ==
--- NOTE | 2025-02-03 09:54 | BI_ITS ---
EXAM: BI/SCRN MAMM (CAD)W/EVELIN BILAT
== END | disposition home or self-care (01) ==
PROVIDERS: PCP Nurse Practitioner Family; Referring Provider Nurse Practitioner Family; Visit Provider Nurse Practitioner Family
DX: Z12.31 Encounter for screening mammogram for malignant neoplasm of breast (principal)
CPT/HCPCS: 77063; 77067

== ENCOUNTER → 2025-02-18 | Outpatient (CLI) | payer OTHER, SELFPAY ==
--- NOTE | 2025-02-18 15:03 | NEURO_ITS ---
NCS and/or EMG Patient Report Ordering Doctor: Valentino Puente DATE OF SERVICE: 02/18/25 Gissel presents with complaints of numbness and tingling in the left hand. Electrodiagnostic findings: Left median motor nerve demonstrates prolonged latency with reduced amplitude and reduced conduction velocity. Left ulnar mo tor response within normal limits. Prolonged left median sensory latency at the wrist. Prolonged left median F?wave. Needle EMG testing was performed in the left upper limb. All muscles tested showed no evidence of denervation with normal motor unit action potentials. Electrodiagnostic impression: This is an abnormal study in the left upper limb. 1. Electrodiagnostic findings suggestive of left-sided median mononeuropathy. This consistent with a moderate to advanced left carpal tunnel syndrome Multi Select Codes Neurology Neurology Interp Codes: 50809-46 Musc test done w/n test comp (interp) and 60418-02 Nrv cndj tst 5-6 studies (interp)
== END | disposition home or self-care (01) ==
PROVIDERS: PCP Nurse Practitioner Family; Referring Provider Specialist; Visit Provider Specialist
DX: S52.572A Other intraarticular fracture of lower end of left radius, initial encounter for closed fracture (principal)
CPT/HCPCS: 95886; 95909